=== PATIENT | female | born 1940 | race Caucasian/White ===

== ENCOUNTER 2019-11-22 08:32 | Emergency (ER) | payer MEDICARE, OTHER, SELFPAY ==
[2019-11-22] VITALS (8 sets, daily range): BP systolic 133–192; BP diastolic 51–75; PULSE 60–111; RESP 11–18; TEMP 36.6; O2SAT 97–100
--- NOTE | ~2019-11-22 | XR_ITS ---
EXAMINATION: XR chest 2V DATE: 11/22/2019 09:01 INDICATION: Shortness of breath. Neck and left arm pain. TECHNIQUE: Frontal and lateral views of the chest were obtained. COMPARISON: Chest 2 views 12/29/2017, chest CT 08/30/2016 FINDINGS: There is mild atelectasis in left lower lung zone. No pleural effusion or pneumothorax. Car diomegaly is noted. Median sternotomy wires and mediastinal surgical clips are seen, likely from prio r coronary artery bypass grafting. There is a left chest pacer/defibrillator with leads in right atri um, right ventricle, and coronary sinus. IMPRESSION: 1. Mild atelectasis in left lower lung zone. 2. Cardiomegaly. Reviewed, dictated and finalized at location A.
--- NOTE | 2019-11-22 08:39 | ECG_ITS ---
Measurements Intervals [place] Rate: 65 P: 68 MA: 192 QRS: 206 QRSD: 152 T: 88 QT: 460 QTc: 481 Interpretive Statements ATRIAL SENSE- ELECTRONIC VENTRICULAR PACEMAKER BASELINE ARTIFACT- I, II, III, AVR, AVL, AVF, V1, V3-V4 NO FURTHER INTERPRETATION IS POSSIBLE ATYPICAL ECG Electronically Signed On 11-22-2019 8:58:12 CDT by Jonah Barber D.O.
--- NOTE | 2019-11-22 09:00 | PC.NURSE ---
PT TO RADIOLOGY IN [facility] [place]
[2019-11-22 09:02] LABS: Basophils Absolute Auto 0.1 K/mm3 (0.0-0.1); Basophils Percent Auto 0.9 % (0.2-1.2); Eosinophils Absolute Auto 0.2 K/mm3 (0-0.3); Eosinophils Percent Auto 2.4 % (0-4.4); Hematocrit 38.7 % (37.0-47.0); Hemoglobin 12.6 g/dL (12.0-15.0); Immature Granulocyte Absolute 0.02 K/mm3 (0.00-0.031); Immature Granulocyte Percent A 0.3 % (0-0.5); Lymphocytes Absolute Auto 1.73 K/mm3 (0.9-3.2); Lymphocytes Percent Auto 24.9 % (18.3-44.2); Mean Corpuscular HGB Conc 32.6 g/dl (32-36); Mean Corpuscular Hemoglobin 27.8 pg (26-34); Mean Corpuscular Volume 85.2 fl (80-100); Mean Platelet Volume 10.1 fl (7.4-10.4); Monocytes Absolute Auto 0.7 K/mm3 (0.1-0.6); Monocytes Percent Auto 9.8 % (2.6-8.5); Neutrophils Absolute Auto 4.3 K/mm3 (1.3-6.7); Neutrophils Percent Auto 61.7 % (45.5-73.1); Platelet Count Result 222 k/mm3 (150-375); Red Blood Count 4.54 M/mm3 (4.2-5.4); Red Cell Distribution Width 15.4 % (11.5-14.5); White Blood Count 6.9 K/mm3 (4.5-10.0)
[2019-11-22 09:10] LABS: INR 1.1
[2019-11-22 09:12] LABS: Potassium 4.5 mmol/L (3.4-5.0)
[2019-11-22 09:15] LABS: Anion Gap 10 mmol/L (8-16); Blood Urea Nitrogen 33 mg/dL (7-17); Calcium 9.5 mg/dL (8.4-10.2); Carbon Dioxide 28 mmol/L (22-30); Chloride 98 mmol/L (98-107); Estimated CRCL calculation 46 ml/min; Estimated Glomerular Filt Rate 60; Glucose 144 mg/dL (65-105); Sodium 136 mmol/L (137-145)
[2019-11-22] MEDS: ASPIRIN 81 MG CHEWABLE TABLET 324 MG PO (09:16)
[2019-11-22 09:24] LABS: Troponin I 0.013 ng/mL (0.000-0.034)
[2019-11-22] MEDS: ACETAMINOPHEN 500 MG TABLET 1000 MG PO (09:45)
--- NOTE | 2019-11-22 10:02 | ED.CHESTPAIN ---
HPI - Chest Pain General Chief Complaint: Chest Pain Stated Complaint: Left arm & neck pain Time Seen by Provider: 11/22/19 08:49 Source: patient Mode of arrival: ambulatory Limitations: no limitations History of Present Illness HPI narrative: 78-year-old female History of heart failure Complains of pain in her left neck left shoulder and left arm since leaving [place] yesterday evening She did not injure it that she knows of Somewhat worse with some movements, nothing really makes it better, although she did not actually take any Tylenol or anything to attempt to alleviate her symptoms She has a history of congestive heart failure and when she was still sore when she woke up this morning she thought that she should come in and be checked out She actually notes that her baseline dyspnea is currently improved over what it usually is And she denies any chest pain or tightness MD complaint: other Onset (ago): hour(s) Timing of current episode: constant Severity: mild Related Data Home Medications Medication Instructions Recorded Confirmed Unable to Obtain Home Medications 11/22/19 11/22/19 Allergies Allergy/AdvReac Type Severity Reaction Status Date / Time Afzafyv-Vde-Dkz Reductase AdvReac Intermediate Verified 12/29/17 11:10 Inhibitor Review of Systems Review of Systems: All systems reviewed & are unremarkable except as noted in HPI and below Constitutional: Constitutional: Denies chills, Denies fatigue, Denies fever(s), Denies headache(s) and Denies night sweats Eyes: Eyes: Denies change in vision, Denies loss of vision and Denies other visual disturbances ENT: Denies headache(s), Denies hoarseness, Denies nasal congestion and Denies sore throat Cardiovascular: Cardiovascular: Denies chest pain, Denies leg edema, Denies palpitations and Denies dyspnea Respiratory: Respiratory: Denies cough, Denies dyspnea and Denies wheezing Gastrointestinal: Gastrointestinal: Denies abdominal pain, Denies diarrhea, Denies nausea and Denies vomiting Genitourinary: Genitourinary: Denies hematuria, Denies urinary frequency and Denies dysuria Musculoskeletal: Musculoskeletal: Denies abnormal gait, Reports back pain, Denies deformity, Reports arthralgias, Denies joint swelling, Denies muscle weakness and Denies numbness Integumentary/Breasts: Skin/Breast: Denies rash, Denies unusual bruising and Denies wounds Neurologic: Denies abnormal gait, Denies headache(s), Denies focal weakness, Denies loss of vision and Denies numbness Psychiatric: Psychiatric: Reports no additional psychiatric complaints Endocrine: Endocrine: Denies fatigue and Denies palpitations Hematologic/Lymphatic: Hematologic/Lymphatic: Denies easy bleeding and Denies easy bruising Allergic/Immunologic: Allergic/Immunologic: Denies wheezing [facility] Social History Social History Gender identity (if verbalized by the patient): Female Exam Const: General: no acute distress and well developed Orientation/consciousness: patient oriented x3 (alert) and Other orientation findings (Alert) Other: Elderly, frail, no distress HENMT: Head: normal to inspection, normocephalic and atraumatic Ears: external ears normal General nose exam: No nasal discharge present Face and sinus: face symmetric Mouth: Yes tongue normal and Yes moist mucous membranes Throat: other (No exudate, no erythema) Eyes: Conjunctivae: conjunctivae normal Sclera: sclerae normal EOM: EOMs intact bilaterally Neck: Neck: normal visual inspection, full ROM and supple Thyroid: thyroid normal Chest: Chest palpation & inspection: tenderness (Slightly tender in the left upper chest) Resp: Effort & Inspection: normal respiratory effort Auscultation: clear to auscultation bilaterally, no rales, no rhonchi, no wheezes and other (breath sounds equal) Cardio: Rate: regular rate Rhythm: regular rhythm Heart sounds: no gallops and no murmurs GI: Inspection: non-distended GI Palp
[2019-11-22 10:07] LABS: NT Pro B Type Natriuretic Pept 281 PG/ML (5-100)
--- NOTE | 2019-11-22 11:09 | PC.NURSE ---
REPORT GIVEN TO ALICIA REID AT THIS TIME, BEDSIDE, HE HAS ASSUMED PT CARE.
[2019-11-22 12:13] LABS: Troponin I < 0.012 ng/mL (0.000-0.034)
== END 2019-11-22 13:36 | disposition home or self-care (01) ==
PROVIDERS: Emergency Provider Emergency Medicine; PCP Family Medicine
DX: M54.2 Cervicalgia (principal); I50.9 Heart failure, unspecified
CPT/HCPCS: 36415; 71046; 80048; 83880; 84484; 85025; 85610; 85730; 93005; 99284; A9270

== ENCOUNTER 2019-12-07 13:53 | Outpatient (CLI) | payer MEDICARE, OTHER, SELFPAY ==
[2019-12-07 14:59] LABS: Anion Gap 12 mmol/L (8-16); Blood Urea Nitrogen 27 mg/dL (7-17); Calcium 9.4 mg/dL (8.4-10.2); Carbon Dioxide 31 mmol/L (22-30); Chloride 97 mmol/L (98-107); Estimated Glomerular Filt Rate > 60; Glucose 165 mg/dL (65-105); Potassium 4.3 mmol/L (3.4-5.0); Sodium 140 mmol/L (137-145)
[2019-12-07 15:06] LABS: NT Pro B Type Natriuretic Pept 122 PG/ML (5-100)
== END 2019-12-07 13:54 | disposition home or self-care (01) ==
PROVIDERS: PCP Family Medicine
DX: I25.10 Atherosclerotic heart disease of native coronary artery without angina pectoris (principal); I48.91 Unspecified atrial fibrillation; I42.9 Cardiomyopathy, unspecified; R60.9 Edema, unspecified; I50.9 Heart failure, unspecified; R06.02 Shortness of breath
CPT/HCPCS: 36415; 80048; 83880

== ENCOUNTER 2020-03-14 13:16 | Outpatient (CLI) | payer MEDICARE, OTHER, SELFPAY | END 2020-03-14 13:17 | disposition home or self-care (01) | LOC: ANHLAB 13:31 | PROVIDERS: PCP Family Medicine | DX: R53.83 Other fatigue (principal) | CPT/HCPCS: 36415; 84443 ==

== ENCOUNTER 2020-05-13 13:33 | Inpatient (IN) | payer MEDICARE, OTHER, SELFPAY ==
--- NOTE | ~2020-05-13 | US_ITS ---
EXAMINATION: US venous doppler [facility] DATE: 05/14/2020 12:35 INDICATION: Lower limb edema. TECHNIQUE: Grayscale ultrasound images without and with compression and Doppler ultrasound images of the bilateral lower extremity veins were obtained. COMPARISON: None. FINDINGS: The visualized portions of right common femoral vein, profunda (deep) femoral vein, femoral vein, pop liteal vein, peroneal veins, posterior tibial veins, and greater saphenous vein outflow are patent. The visualized portions of left common femoral vein, profunda femoral vein, femoral vein, popliteal v ein, peroneal veins, posterior tibial veins, and greater saphenous vein outflow are patent. IMPRESSION: 1. No deep venous thrombosis. Reviewed, dictated and finalized at location A.
--- NOTE | ~2020-05-13 | XR_ITS ---
EXAMINATION: XR chest 2V DATE: 05/13/2020 14:10 INDICATION: Shortness of breath. TECHNIQUE: Frontal and lateral views of the chest were obtained. COMPARISON: Chest 2 views 11/22/2019, chest CT 08/30/2016 FINDINGS: There is no pneumonia, pleural effusion, or pneumothorax. Cardiomegaly is noted. Median elvira rnotomy wires and mediastinal surgical clips are seen, likely from prior coronary artery bypass graft ing. There is a left chest pacer with leads in right atrium, right ventricle, and coronary sinus. The re is a chronic compression fracture in mid thoracic spine. IMPRESSION: 1. Cardiomegaly. Reviewed, dictated and finalized at location A. KER PRESS OPERATOR IMPRESSION: 1. Cardiomegaly.
--- NOTE | ~2020-05-13 | US_ITS ---
US arterial duplex LE RT 05/13/2020 14:44 Indication: Right lower extremity pain and cyanosis Procedure: Real-time right lower extremity arterial Doppler Comparison: No prior studies for comparison. Findings: The following velocities were obtained in the right lower extremity arteries: Right common femoral artery 10 1 cm/s Profunda femoris artery 261 cm/s Femoral artery proximally 73 cm/s Femoral artery mid 75 cm/s Femoral artery distal 88 cm/s Popliteal artery proximal 37 cm/s Popliteal artery distal 30 cm/s Posterior tibial artery 22 cm/s Peroneal artery 19 cm/s Anterior tibial artery 19 cm/s Dorsalis pedis artery 14 cm/s Limited flow noted in the posterior tibial, peroneal, anterior tibial and dorsalis pedis arteries. Impression: 1: Patent lower extremity arteries with significant velocity gradients below the femoral arteries, co nsistent with peripheral arterial disease. Reviewed, dictated and finalized at location A. STRY WORKER Impression: 1: Patent lower extremity arteries with significant velocity gradients below th e femoral arteries, consistent with peripheral arterial disease.
[2020-05-13 13:37] VITALS: BP 103/44; PULSE 70; RESP 20; TEMP 36.3; O2SAT 100
--- NOTE | 2020-05-13 13:41 | ECG_ITS ---
Measurements Intervals Left Hand Rate: 63 P: 74 DE: 183 QRS: -63 QRSD: 144 T: 75 QT: 471 QTc: 484 Interpretive Statements ATRIAL SENSE- ELECTRONIC VENTRICULAR PACEMAKER BASELINE ARTIFACT- I, II, III, AVR, AVL NO FURTHER INTERPRETATION IS POSSIBLE ATYPICAL ECG Electronically Signed On 05-13-2020 15:47:39 TEACHER MUSIC by Jonah Barber D.O.
[2020-05-13 13:51] LABS: Basophils Absolute Auto 0.1 K/mm3 (0.0-0.1); Basophils Percent Auto 0.5 % (0.2-1.2); Eosinophils Absolute Auto 0.2 K/mm3 (0-0.3); Eosinophils Percent Auto 2.2 % (0-4.4); Hematocrit 27.1 % (37.0-47.0); Hemoglobin 8.7 g/dL (12.0-15.0); Immature Granulocyte Absolute 0.04 K/mm3 (0.00-0.031); Immature Granulocyte Percent A 0.4 % (0-0.5); Lymphocytes Percent Auto 18.4 % (18.3-44.2); Mean Corpuscular HGB Conc 32.1 g/dl (32-36); Mean Corpuscular Hemoglobin 29.8 pg (26-34); Mean Corpuscular Volume 92.8 fl (80-100); Mean Platelet Volume 9.6 fl (7.4-10.4); Monocytes Absolute Auto 0.9 K/mm3 (0.1-0.6); Monocytes Percent Auto 9.1 % (2.6-8.5); Neutrophils Absolute Auto 6.8 K/mm3 (1.3-6.7); Neutrophils Percent Auto 69.4 % (45.5-73.1); Platelet Count Result 290 k/mm3 (150-375); Red Blood Count 2.92 M/mm3 (4.2-5.4); Red Cell Distribution Width 15.1 % (11.5-14.5); White Blood Count 9.8 K/mm3 (4.5-10.0)
[2020-05-13 14:01] LABS: INR 1.3; Prothrombin Time 16.4 Seconds (11.1-14.7)
[2020-05-13 14:02] LABS: Anion Gap 9 mmol/L (8-16); Blood Urea Nitrogen 23 mg/dL (7-17); Calcium 8.9 mg/dL (8.4-10.2); Carbon Dioxide 27 mmol/L (22-30); Chloride 100 mmol/L (98-107); Estimated CRCL calculation 38 ml/min; Estimated Glomerular Filt Rate 48; Glucose 156 mg/dL (65-105); Partial Thromboplastin Time 33.2 SECONDS (22.3-36.8); Potassium 4.4 mmol/L (3.4-5.0); Sodium 136 mmol/L (137-145)
[2020-05-13 14:14] LABS: NT Pro B Type Natriuretic Pept 344 PG/ML (5-100); Troponin I < 0.012 ng/mL (0.000-0.034)
[2020-05-13 15:04] VITALS: BP 112/47; PULSE 60; RESP 20; O2SAT 98
--- NOTE | 2020-05-13 16:19 | ED.SOB ---
HPI - SOB/Dyspnea General Chief Complaint: Shortness of Breath/Dyspnea Stated Complaint: SOB, weakness, leggs swollen turned blue Time Seen by Provider: 05/13/20 13:51 Related Data Home Medications Medication Instructions Recorded Confirmed evolocumab 420 mg/3.5 mL mg SUBCUT 04/12/20 04/30/20 subcutaneous wearable injector lorazepam 0.5 mg tablet 0.5 mg PO TID PRN 04/12/20 04/30/20 Allergies Allergy/AdvReac Type Severity Reaction Status Date / Time Hciqzsa-Mwe-Ovp Reductase AdvReac Intermediate Muscle Pain Verified 05/13/20 13:40 Inhibitor [facility] Past Medical History Medical History 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 BMI 30.0-30.9,adult Family History Family History Father Asthma Lung cancer Mother Hypertension Sibling Lung cancer Social History Social History Smoking packs per day: 1 Smoking cigarettes per day: 20.0 Years smoked: 5 Smoking pack-years: 5.00 Smoking status: Former smoker Tobacco type: cigarettes Alcohol intake: current Substance use: never Substance use type: does not use 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 HEAD: Normocephalic, atraumatic. EYES: PERRLA and EOMI. NECK: Supple. CHEST: Clear to auscultation. No respiratory distress. HEART: Regular rate and rhythm. No murmur heard. Normal peripheral pulses. ABDOMEN: Soft, nontender, nondistended, normal active bowel sounds. EXTREMITIES: Normal range of motion. Right leg diffuse bruising from thigh up to mid calf . good pedal pulse SKIN: Warm, dry, no rash. NEURO: No focal deficits. Alert and oriented x3. PSYCH: Normal mood and affect. Course Course Emergency Course: Arterial Doppler shows a PVD however there is no acute occlusion, however her hemoglobin has significantly dropped by 4 points from the last admission. I did Hemoccult which was negative. Her leg is all bruised not quite sure whether she might of bleed into the leg Vital Signs Vital signs: Vital Signs Temperature 36.3 C L 05/13/20 13:37 Pulse Rate 70 05/13/20 13:37 Respiratory Rate 20 05/13/20 13:37 Blood Pressure 103/44 L 05/13/20 13:37 Pulse Oximetry 100 05/13/20 13:37 Temperature 36.3 C L 05/13/20 13:37 Pulse Rate 60 05/13/20 15:04 Respiratory Rate 20 05/13/20 15:04 Blood Pressure 112/47 L 05/13/20 15:04 Pulse Oximetry 98 05/13/20 15:04 MDM - SOB/Dyspnea MDM Narrative Medical decision making narrative: Within given history of PVD and right leg being swollen and tender we will do arterial Doppler to make sure that she does not have any acute clot also will do CBC and chemistry and a chest x-ray. Lab Data Result diagrams: 05/13/20 13:45 05/13/20 13:45 Labs: Lab Results 05/13/20 05/13/20 05/13/20 Range/Units 13:45 13:45 13:45 WBC 9.8 (4.5-10.0) K/mm3 RBC 2.92 L (4.2-5.4) M/mm3 Hgb 8.7 L D (12.0-15.0) g/dL Hct 27.1 L (37.0-47.0) % MCV 92.8 (80-100) fl MCH 29.8 (26-34) pg MCHC 32.1 (32-36) g/dl RDW 15.1 H (11.5-14.5) % Plt Count 290 (150-375) k/mm3 MPV 9.6 (7.4-10.4) fl Immature Gran % (Auto) 0.4 (0-0.5) % Neut % (Auto) 69.4 (45.5-73.1) % Lymph % (Auto) 18.4 (18.3-44.2) % [place] % (Auto) 9.1 H (2.6-8.5) % Eos % (Auto) 2.2 (0-4.4) % Baso % (Auto) 0.5 (0.2-1.2) % Lymph # (Auto) 1.80 (0.9-3.2) K/mm3 [place] # (Auto) 0.9 H (0.1-0.6) K/mm3 Eos # (Auto) 0.2 (0-0.3) K/mm3 Baso # (Auto) 0.1 (0.0-0.1) K/mm3 Abs Immat Gran (auto) 0.04 H (0.00-0.031) K/mm3 Absolute Neuts (auto) 6.8 H (1.3-6.7)
[2020-05-13 16:35] LABS: Hematocrit 25.7 % (37.0-47.0); Hemoglobin 8.3 g/dL (12.0-15.0)
--- NOTE | 2020-05-13 17:25 | ADMGEN ---
This patient, Ghazal Golden, was admitted to Medical Room 341-01. Patient/family oriented to hospital policies and general routines including ID bracelet, bed and alarms, visiting hours, pain management, procedures, bathroom and other care routines, personal items, smoking policy, room service/diet, and visiting hours. Information on how to activate the Rapid Response Team has been discussed. Patient/Family are encouraged to report perceived risks to care and to ask questions if they do not understand what they are told or what they should do.
[2020-05-13] MEDS: SODIUM CHLORIDE 0.9% IV 1,000 ML 75 ML IV CONT (17:27)
[2020-05-13 17:35] VITALS: BP 113/52; PULSE 66; RESP 20; TEMP 36.5; O2SAT 99; BMI 31.9
[2020-05-13 20:00] VITALS: PULSE 63
[2020-05-13 20:53] VITALS: BP 127/69; PULSE 62; RESP 12; TEMP 36.7; O2SAT 99
[2020-05-13 22:02] LABS: Glucose Point of Care 112 (65-105)
[2020-05-13 23:22] LABS: Hematocrit 24.8 % (37.0-47.0); Hemoglobin 8.1 g/dL (12.0-15.0)
--- NOTE | 2020-05-13 23:58 | PM.IMHP ---
H&P: HPI History of Present Illness Date/Time: 05/13/20 23:58 Chief Complaint: hematoma Narrative: This is a pleasant 79 year old Diabetic female with history of atrial fibrillation on chronic anticoagulation with Eliquis, Systolic and Diastolic heart failure, and HTN among several other comorbidities presented to the hospital yesterday with a complaint of right proximal leg swelling, bruising, and pain. She reports that she believes she might have pulled her hamstring muscle and decided last night that she was going to do some exercises to help loosen it up. Her son directed her and she did simple leg exercises. She woke up in the morning and found that her leg was more swollen and severely bruised. She denies any trauma to her leg. She also complains of ongoing exertional shortness of breath which she states is chronic and unchanged. She denies any fevers, chills, worsening cough, sore throat, chest pain, palpitations, abdominal pain, dysuria, hematuria, rectal bleeding, dark black stools, or focal deficits. Routine labs demonstrated worsening anemia and ER provider performed rectal exam which was negative for blood. The patient was admitted for observation to keep an eye on her blood counts. 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 Hyperlipidemia Occult blood positive stool Paroxysmal atrial fibrillation Surgical History Surgical History History of bilateral knee arthroplasty Family History Family History Father Asthma Lung cancer Mother Hypertension Sibling Lung cancer Social History Social History Smoking packs per day: 0.5 Smoking cigarettes per day: 10.0 Years smoked: 3 Smoking pack-years: 1.50 Smoking status: Former smoker Tobacco type: cigarettes Alcohol intake: never Substance use: never Substance use type: does not use Living arrangements: alone 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/Education: 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 Gender identity (if verbalized by the patient): Female Spiritual care concerns: No Meds Home Medications and Allergies Home Medications Medication Instructions Recorded Confirmed Type albuterol sulfate 90 mcg/actuation 2 puff INHALATION Q4H PRN #8.5 g 04/12/20 05/13/20 Rx aerosol inhaler amiodarone 200 mg tablet 200 mg PO DAILY #30 tablet 04/12/20 05/13/20 Rx apixaban 5 mg tablet 5 mg PO BID #60 tablet 04/12/20 05/13/20 Rx carvedilol 25 mg tablet 25 mg PO Q12H #60 tablet 04/12/20 05/13/20 Rx cholecalciferol (vitamin D3) 50 50 mcg PO DAILY #30 cap 04/12/20 05/13/20 Rx mcg (2,000 unit) capsule clopidogrel 75 mg tablet 75 mg PO DAILY #30 tablet 04/12/20 05/13/20 Rx evolocumab 420 mg/3.5 mL 420 mg SUBCUT MONTHLY 04/12/20 05/13/20 History subcutaneous wearable injector fluticasone propionate 50 1 spray INTRANASAL DAILY #16 g 04/12/20 05/13/20 Rx mcg/actuation nasal spray,suspension furosemide 40 mg tablet 40 mg PO QAM #30 tablet 04/12/20 05/13/20 Rx glipizide 5 mg tablet 5 mg PO BID #60 tablet 04/12/20 05/13/20 Rx lorazepam 0.5 mg tablet 0.5 mg PO TID PRN 04/12/20 05/13/20 History magnesium oxide 400 mg PO DAILY #30 cap 04/12/20 05/13/20 Rx metformin 1,000 mg tablet 1,000 mg PO BID #60 tablet 04/12/20 05/13/20 Rx multivitamin 1 tablet PO DAILY #30 tablet 04/12/20 05/13/20 Rx omega-3 acid ethyl farzaneh
[2020-05-14] VITALS (14 sets, daily range): BP systolic 125–134; BP diastolic 43–73; PULSE 61–86; RESP 12–18; TEMP 36.6–36.9; O2SAT 94–100
--- NOTE | 2020-05-14 03:22 | PC.NURSE ---
Daylight Savings Time For Daylight Savings Time Ending in the Fall - Clocks are moved back. For Daylight Savings Time Beginning in the Spring - Clocks are moved ahead. For [facility], the time of change occurs at 0200 hrs. Time is taken from the heat treat technician. This entry on the patient's chart recognizes the change in time reflected during documentation. Example: 2 entries for vital signs may be charted for 0200 hrs.
[2020-05-14] MEDS: ZOLPIDEM TARTRATE (*CRX) 5 MG TABLET PO (03:48)
[2020-05-14 05:59] LABS: Hematocrit 22.5 % (37.0-47.0); Hemoglobin 7.3 g/dL (12.0-15.0)
[2020-05-14 06:00] LABS: Basophils Percent Auto 0.5 % (0.2-1.2); Eosinophils Absolute Auto 0.2 K/mm3 (0-0.3); Eosinophils Percent Auto 2.4 % (0-4.4); Hematocrit 22.8 % (37.0-47.0); Hemoglobin 7.2 g/dL (12.0-15.0); Immature Granulocyte Absolute 0.03 K/mm3 (0.00-0.031); Immature Granulocyte Percent A 0.5 % (0-0.5); Lymphocytes Absolute Auto 1.62 K/mm3 (0.9-3.2); Lymphocytes Percent Auto 25.4 % (18.3-44.2); Mean Corpuscular HGB Conc 31.6 g/dl (32-36); Mean Corpuscular Hemoglobin 28.6 pg (26-34); Mean Corpuscular Volume 90.5 fl (80-100); Mean Platelet Volume 9.4 fl (7.4-10.4); Monocytes Absolute Auto 0.8 K/mm3 (0.1-0.6); Monocytes Percent Auto 12.4 % (2.6-8.5); Neutrophils Absolute Auto 3.8 K/mm3 (1.3-6.7); Neutrophils Percent Auto 58.8 % (45.5-73.1); Platelet Count Result 241 k/mm3 (150-375); Red Blood Count 2.52 M/mm3 (4.2-5.4); Red Cell Distribution Width 15.3 % (11.5-14.5); White Blood Count 6.4 K/mm3 (4.5-10.0)
[2020-05-14 06:17] LABS: Anion Gap 2 mmol/L (8-16); Blood Urea Nitrogen 22 mg/dL (7-17); Calcium 8.1 mg/dL (8.4-10.2); Carbon Dioxide 30 mmol/L (22-30); Chloride 104 mmol/L (98-107); Estimated CRCL calculation 46 ml/min; Estimated Glomerular Filt Rate 60; Glucose 72 mg/dL (65-105); Sodium 136 mmol/L (137-145)
[2020-05-14] MEDS: AMIODARONE HCL 200 MG TABLET PO (07:52)
[2020-05-14] MEDS: metFORMIN HCL 500 MG TABLET 1000 MG PO ×2 (07:53→16:43)
[2020-05-14] MEDS: glipiZIDE 5 MG TABLET PO ×2 (07:53→16:44)
[2020-05-14 08:10] LABS: Glucose Point of Care 75 (65-105)
[2020-05-14] MEDS: CHOLECALCIFEROL 1,000 UNITS TABLET 2000 UNITS PO (08:39)
[2020-05-14] MEDS: carvediloL 25 MG TABLET PO ×2 (08:39→20:13)
[2020-05-14] MEDS: OMEGA 3 POLYUNSAT FATTY ACIDS 1 GM CAP PO ×2 (08:40→16:44)
[2020-05-14] MEDS: MAGNESIUM OXIDE 400 MG TABLET PO (08:40)
[2020-05-14] MEDS: FUROSEMIDE 40 MG TABLET PO (08:40)
[2020-05-14] MEDS: SACUBITRIL/VALSARTAN 24-26 MG TABLET 1 TAB PO ×2 (08:40→20:13)
[2020-05-14] MEDS: MULTIVITAMINS THERAPEUTIC TAB (*BKC) 1 TABLET PO (08:40)
[2020-05-14] MEDS: FLUTICASONE PROPIONATE 0.05% NA SPR 16 GM BTL (*BKC) 1 SPRAY NASAL (08:40)
--- NOTE | 2020-05-14 10:08 | PM.IMPN ---
Progress Note: A&P Assessment and Plan (1) Hematoma of right lower extremity: Qualifiers: Encounter type: initial encounter Qualified Code(s): S80.11XA - Contusion of right lower leg, initial encounter Code(s): S80.11XA - Contusion of right lower leg, initial encounter Status: Acute Assessment and Plan: Will do venous Doppler lower extremity. It monitored closely. (2) Anemia: Qualifiers: Anemia type: unspecified type Qualified Code(s): D64.9 - Anemia, unspecified Code(s): D64.9 - Anemia, unspecified Status: Acute Assessment and Plan: Hemoglobin dropped to 7.2 today. Will transfuse 2 units of blood. Will hold Plavix, Monitor hemoglobin, consult Gastroenterology. 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 Venous Doppler lower extremity. Hold Plavix. Repeat CBC in the morning. Hemoccult stools. Consult GI service if Hemoccult stool is positive. Subjective Date/time seen: 05/14/20 10:08 Interval history: Patient was seen during the morning rounds today. Patient has generalized weakness. Denies any shortness of breath or chest pain. Pain in the lower extremity has decreased. Mood stable. Review of Systems Review of Systems: All systems reviewed & are unremarkable except as noted in HPI and below Exam Const: General: cooperative, no acute distress, alert and awake Nutritional Appearance: obese Orientation/consciousness: patient oriented x3 HENMT: Head: normal to inspection General nose exam: Normal external nose present Face and sinus: normal facial exam Mouth: Yes Normal oral and palatal mucosa present and Yes oropharynx normal Eyes: Pupils: Equal, round and reactive pupils present EOM: EOMs intact bilaterally Neck: Neck: supple and no JVD Thyroid: thyroid normal Lymphatic: lymphadenopathy not noted Resp: Effort & Inspection: normal respiratory effort Auscultation: clear to auscultation bilaterally Cardio: Rate: other Rhythm: abnormal rhythm irregularly irregular Heart sounds: no murmurs GI: Inspection: normal to inspection Auscultation: normal bowel sounds Skin: General skin exam: ecchymosis (posterior right upper leg++ ) Neuro: General: patient oriented x3 Cranial nerves: Yes CN's II-XII intact bilaterally and Yes Equal, round and reactive pupils present Speech: normal speech Motor exam (neuro): 5/5 motor strength present throughout Sensory Exam: normal sensation Extrem: General: normal to inspection and no edema Psych: Mental Status: mental status grossly normal Affect: normal affect Objective Data Vital Signs Vital Signs: Vital Signs - 24 hr 05/13/20 13:37 05/13/20 15:04 05/13/20 17:35 Temperature 36.3 C L 36.5 C Pulse Rate 70 60 66 Respiratory Rate 20 20 20 Blood Pressure 103/44 L 112/47 L 113/52 L Pulse Oximetry 100 98 99 05/13/20 20:00 05/13/20 20:53 05/14/20 00:00 Temperature 36.7 C Pulse Rate 63 62 81 Respiratory Rate 12 Blood Pressure 127/69 Pulse Oximetry 99 05/14/20 04:08 05/14/20 05:35 05/14/20 07:52 Temperature 36.6 C Pulse Rate 65 66 66 Respiratory Rate 12 Blood Pressure 134/49 L Pulse Oximetry 94 05/14/20 07:53 05/14/20 08:00 05/14/20 08:39 Temperature Pulse Rate 68 68 Respiratory Rate Blood Pressure
[2020-05-14] MEDS: PANTOPRAZOLE SODIUM IV 40 MG VIAL IV PUSH (11:29)
[2020-05-14] MEDS: INSULIN ASPART (*BKC) 100 UNITS/ML SUB-Q (11:32)
[2020-05-14 11:48] LABS: Hematocrit 24.4 % (37.0-47.0); Hemoglobin 7.7 g/dL (12.0-15.0)
--- NOTE | 2020-05-14 12:36 | WPDGICN ---
Assessment and Plan Assessment and plan (1) Acute blood loss anemia: Code(s): D62 - Acute posthemorrhagic anemia Status: Acute Assessment and Plan: most likely from large hematoma in right leg in setting of blood thinners but also noted occult blood in stools patient is willing to have a colonoscopy (never had one), we can do it tomorrrow trend hb (2) Occult blood positive stool: Code(s): R19.5 - Other fecal abnormalities Status: Acute Assessment and Plan: will assess with colonoscopy (3) Hematoma of right lower extremity: Qualifiers: Encounter type: initial encounter Qualified Code(s): S80.11XA - Contusion of right lower leg, initial encounter Code(s): S80.11XA - Contusion of right lower leg, initial encounter Status: Acute Assessment and Plan: holding blood thinners by primary pending ultrasound (4) Paroxysmal atrial fibrillation: Code(s): I48.0 - Paroxysmal atrial fibrillation Status: Acute (5) Combined systolic and diastolic heart failure: Code(s): I50.40 - Unspecified combined systolic (congestive) and diastolic (congestive) heart failure Status: Acute (6) Essential (primary) hypertension: Code(s): I10 - Essential (primary) hypertension Status: Acute (7) 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 Blood work showed worsening anemia hb 7.2 (last year hb 12), mcv 90, normal creatinine, platelets and coags. Routine labs demonstrated worsening anemia, patient denies obvious blood in stools but I was told that found occult blood. She never had colonoscopy. Denies change in bowel habits. Review of Systems Constitutional: Constitutional: Denies chills Eyes: Eyes: Reports no additional eye complaints ENT: Reports system reviewed and no additional complaints, except as documented Cardiovascular: Cardiovascular: Reports no additional cardiovascular complaints Respiratory: Respiratory: Reports no additional respiratory complaints Gastrointestinal: Gastrointestinal: Reports no additional gastrointestinal complaints Genitourinary: Genitourinary: Reports no additional female genitourinary complaints Musculoskeletal: Comments: leg pain Neurologic: Reports system reviewed and no additional complaints, except as documented Psychiatric: Psychiatric: Reports no additional psychiatric complaints Hematologic/Lymphatic: Hematologic/Lymphatic: Reports easy bruising PMFSH Past Medical History Medical History 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
[2020-05-14 16:38] LABS: Glucose Point of Care 80 (65-105)
[2020-05-14] MEDS: polyethylene glycoL 3350 238 GM BOTTLE PO (16:43)
[2020-05-14 16:52] LABS: IFOB Positive Control Positive; Immunochemical Fecal Occult Bl Negative (N)
[2020-05-14] MEDS: BISACODYL 5 MG TABLET EC 20 MG PO (20:12)
[2020-05-14 20:14] LABS: Hemoglobin 8.4 g/dL (12.0-15.0)
[2020-05-15] VITALS (13 sets, daily range): BP systolic 129–146; BP diastolic 41–50; PULSE 62–69; RESP 16–27; TEMP 36.6–36.7; O2SAT 96–100
[2020-05-15] MEDS: ZOLPIDEM TARTRATE (*CRX) 5 MG TABLET PO ×2 (01:14→23:42)
[2020-05-15] MEDS: MAGNESIUM CITRATE 300 ML BTL PO (04:59)
[2020-05-15 05:12] LABS: Hematocrit 24.5 % (37.0-47.0); Hemoglobin 7.9 g/dL (12.0-15.0); Mean Corpuscular HGB Conc 32.2 g/dl (32-36); Mean Corpuscular Hemoglobin 29.5 pg (26-34); Mean Corpuscular Volume 91.4 fl (80-100); Mean Platelet Volume 9.4 fl (7.4-10.4); Platelet Count Result 248 k/mm3 (150-375); Red Blood Count 2.68 M/mm3 (4.2-5.4); Red Cell Distribution Width 15.4 % (11.5-14.5); White Blood Count 10.1 K/mm3 (4.5-10.0)
[2020-05-15 05:27] LABS: Anion Gap 8 mmol/L (8-16); Blood Urea Nitrogen 18 mg/dL (7-17); Calcium 8.6 mg/dL (8.4-10.2); Carbon Dioxide 27 mmol/L (22-30); Chloride 99 mmol/L (98-107); Estimated CRCL calculation 46 ml/min; Estimated Glomerular Filt Rate 60; Glucose 184 mg/dL (65-105); Potassium 3.4 mmol/L (3.4-5.0); Sodium 134 mmol/L (137-145)
[2020-05-15 07:54] LABS: Glucose Point of Care 209 (65-105)
[2020-05-15 09:59] LABS: Glucose Point of Care 157 (65-105)
[2020-05-15 10:25] LABS: Hematocrit 23.9 % (37.0-47.0); Hemoglobin 7.8 g/dL (12.0-15.0); Mean Corpuscular HGB Conc 32.6 g/dl (32-36); Mean Corpuscular Volume 91.9 fl (80-100); Mean Platelet Volume 9.5 fl (7.4-10.4); Platelet Count Result 268 k/mm3 (150-375); Red Cell Distribution Width 15.4 % (11.5-14.5); White Blood Count 8.4 K/mm3 (4.5-10.0)
[2020-05-15 11:23] LABS: Anion Gap 4 mmol/L (8-16); Blood Urea Nitrogen 19 mg/dL (7-17); Calcium 8.6 mg/dL (8.4-10.2); Carbon Dioxide 31 mmol/L (22-30); Chloride 101 mmol/L (98-107); Estimated CRCL calculation 46 ml/min; Estimated Glomerular Filt Rate 60; Glucose 152 mg/dL (65-105); Potassium 3.5 mmol/L (3.4-5.0); Sodium 136 mmol/L (137-145)
[2020-05-15 11:51] LABS: Glucose Point of Care 123 (65-105)
[2020-05-15 13:22] LABS: Glucose Point of Care 115 (65-105)
[2020-05-15] MEDS: LACTATED RINGERS 1,000 ML 150 ML IV CONT (13:29)
--- NOTE | 2020-05-15 13:53 | WPDANESEPPF ---
Anes - Initial Pre Proc Eval Procedure: Operation Date: 05/15/20 15:15 Proposed Procedures p Colonoscopy - Sabino Diaz MD Date/Time: 05/15/20 13:53 Surgeon: Ender Crowell MD Pre Op Diagnosis: Right Leg Hematoma, Anemia, SOB Patient Data Age: 79 Gender: F Height: 5 ft 4 in Weight: 84.5 kg Last Vital Signs Temp 98.1 F 05/15/20 13:23 Pulse 65 05/15/20 13:23 Resp 16 05/15/20 13:23 BP 146/43 H 05/15/20 13:23 Pulse Ox 100 05/15/20 13:23 Allergies Allergy/AdvReac Type Severity Reaction Status Date / Time Yeeecwy-Dvm-Liq Reductase AdvReac Intermediate Muscle Pain Verified 05/15/20 13:18 Inhibitor Home Medications Medication Instructions Recorded Confirmed Type albuterol sulfate 90 mcg/actuation 2 puff INHALATION Q4H PRN #8.5 g 04/12/20 05/13/20 Rx aerosol inhaler amiodarone 200 mg tablet 200 mg PO DAILY #30 tablet 04/12/20 05/13/20 Rx apixaban 5 mg tablet 5 mg PO BID #60 tablet 04/12/20 05/13/20 Rx carvedilol 25 mg tablet 25 mg PO Q12H #60 tablet 04/12/20 05/13/20 Rx cholecalciferol (vitamin D3) 50 50 mcg PO DAILY #30 cap 04/12/20 05/13/20 Rx mcg (2,000 unit) capsule clopidogrel 75 mg tablet 75 mg PO DAILY #30 tablet 04/12/20 05/13/20 Rx evolocumab 420 mg/3.5 mL 420 mg SUBCUT MONTHLY 04/12/20 05/13/20 History subcutaneous wearable injector fluticasone propionate 50 1 spray INTRANASAL DAILY #16 g 04/12/20 05/13/20 Rx mcg/actuation nasal spray,suspension furosemide 40 mg tablet 40 mg PO QAM #30 tablet 04/12/20 05/13/20 Rx glipizide 5 mg tablet 5 mg PO BID #60 tablet 04/12/20 05/13/20 Rx lorazepam 0.5 mg tablet 0.5 mg PO TID PRN 04/12/20 05/13/20 History magnesium oxide 400 mg PO DAILY #30 cap 04/12/20 05/13/20 Rx metformin 1,000 mg tablet 1,000 mg PO BID #60 tablet 04/12/20 05/13/20 Rx multivitamin 1 tablet PO DAILY #30 tablet 04/12/20 05/13/20 Rx omega-3 acid ethyl esters 1 gram 1 cap PO BID #60 cap 04/12/20 05/13/20 Rx capsule potassium chloride 20 mEq 40 meq PO BID #120 tablet 04/12/20 05/13/20 Rx tablet,extended release(part/cryst) ranolazine 500 mg tablet,extended 500 mg PO Q12H #60 tablet 04/12/20 05/13/20 Rx release,12 hr sacubitril 24 mg-valsartan 26 mg 1 tablet PO BID #60 tablet 04/12/20 05/13/20 Rx tablet vit C-vit W-yabegw-tqyx ox-lutein 1 cap PO .once daily #30 cap 04/12/20 05/13/20 Rx 226 mg-200 unit-5 mg-0.8 mg capsule zolpidem 5 mg tablet 5 mg PO DAILY PRN #30 tablet 04/12/20 05/13/20 Rx nitroglycerin 1 patch TRANSDERMAL DAILY PRN 05/13/20 05/13/20 History Laboratory Tests 05/14/20 05/14/20 05/14/20 11:30 16:15 16:34 WBC RBC Hgb Hct MCV MCH MCHC RDW Plt Count MPV Sodium Potassium Chloride Carbon Dioxide Anion Gap BUN Creatinine Estim Creat Clear Calc Estimated GFR Glucose POC Capillary Glucose 209 mg/dl H mg/dl 80 mg/dl mg/dl (65-105) (65-105) Calcium Stl Occult Blood (IFOB) Negative (N) 05/14/20 05/15/20 05/15/20 20:09 04:57 04:57 WBC 10.1 K/mm3 H K/mm3 (4.5-10.0) RBC 2.68 M/mm3 L M/mm3 (4.2-5.4) Hgb 8.4 g/dL L g/dL 7.9 g/dL L g/dL (12.0-15.0) (12.0-15.0) Hct 26.0 % L % 24.5 % L % (37.0-47.0) (37.0-47.0) MCV 91.4 fl fl (80-100) MCH 29.5 pg pg (26-34) MCHC 32.2 g/dl g/dl (32-36) RDW 15.4 % H % (11.5-14.5) Plt Count 248 k/mm3 k/mm3 (150-375) MPV 9.4 fl fl (7.4-10.4) Sodium 134 mmol/L L mmol/L (137-145) Potassium 3.4 mmol/L mmol/L (3.4-5.0) Chloride 99 mmol/L mmol/L (98-107) Carbon Dioxide 27 mmol/L mmol/L (22-30) Anion Gap 8 mmol/L mmol/L (8-16) BUN 1
--- NOTE | 2020-05-15 16:09 | PM.IMPN ---
Progress Note: A&P Assessment and Plan (1) Hematoma of right lower extremity: Qualifiers: Encounter type: initial encounter Qualified Code(s): S80.11XA - Contusion of right lower leg, initial encounter Code(s): S80.11XA - Contusion of right lower leg, initial encounter Status: Acute Assessment and Plan: Will do venous Doppler lower extremity. It monitored closely. 05/15/20 16:09, patient is 79-year-old female chronically anticoagulated atrial fibrillation with Eliquis with history of diastolic dysfunction patient presented emergency department with a complaint pain, swelling and bruising apparently patient and leg cramps and patient was doing exercise yesterday and woke up next morning with more swelling and pain was brought to the emergency department for further evaluation was found to be anemic and patient was given 2 units of pack RBC, most likely multifactorial secondary to large hematoma on right lower extremity and her stool Hemoccult is also positive, patient was seen by GI and is planning to take the patient endoscopy today further evaluation, to further evaluate her hematoma patient had a lower extremity venous Doppler there was no DVT, arterial ultrasound showed patient has a PVD, Patient denies any chest pain, shortness of breath palpitation, patient's son is present in the room, will follow-up on endoscopy and further recommendation to follow (2) Anemia: Qualifiers: Anemia type: unspecified type Qualified Code(s): D64.9 - Anemia, unspecified Code(s): D64.9 - Anemia, unspecified Status: Acute Assessment and Plan: Hemoglobin dropped to 7.2 today. Will transfuse 2 units of blood. Will hold Plavix, Monitor hemoglobin, consult Gastroenterology. 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 Venous Doppler lower extremity. Hold Plavix. Repeat CBC in the morning. Hemoccult stools. Consult GI service if Hemoccult stool is positive. Subjective Date/time seen: 05/15/20 16:09, patient is 79-year-old female chronically anticoagulated atrial fibrillation with Eliquis with history of diastolic dysfunction patient presented emergency department with a complaint pain, swelling and bruising apparently patient and leg cramps and patient was doing exercise yesterday and woke up next morning with more swelling and pain was brought to the emergency department for further evaluation was found to be anemic and patient was given 2 units of pack RBC, most likely multifactorial secondary to large hematoma on right lower extremity and her stool Hemoccult is also positive, patient was seen by GI and is planning to take the patient endoscopy today further evaluation, to further evaluate her hematoma patient had a lower extremity venous Doppler there was no DVT, arterial ultrasound showed patient has a PVD, Patient denies any chest pain, shortness of breath palpitation, patient's son is present in the room, will follow-up on endoscopy and further recommendation to follow Review of Systems Review of Systems: All systems reviewed & are unremarkable except as noted in HPI and below Exam Narrative: Exam Narrative: Moderately obese Patient is comfortable, NAD HEENT: eyes are clear and none icteric LUNGS:CTA HEART: RR S1S2 ABD: BS+, Soft and non
[2020-05-15] MEDS: AMIODARONE HCL 200 MG TABLET PO (16:38)
[2020-05-15] MEDS: CHOLECALCIFEROL 1,000 UNITS TABLET 2000 UNITS PO (16:38)
[2020-05-15] MEDS: FUROSEMIDE 40 MG TABLET PO (16:39)
[2020-05-15] MEDS: FLUTICASONE PROPIONATE 0.05% NA SPR 16 GM BTL (*BKC) 1 SPRAY NASAL (16:39)
[2020-05-15] MEDS: MAGNESIUM OXIDE 400 MG TABLET PO (16:39)
[2020-05-15] MEDS: PANTOPRAZOLE SODIUM IV 40 MG VIAL IV PUSH (16:40)
[2020-05-15] MEDS: MULTIVITAMINS THERAPEUTIC TAB (*BKC) 1 TABLET PO (16:40)
[2020-05-15] MEDS: glipiZIDE 5 MG TABLET PO (16:45)
[2020-05-15] MEDS: metFORMIN HCL 500 MG TABLET 1000 MG PO (16:45)
[2020-05-15] MEDS: OMEGA 3 POLYUNSAT FATTY ACIDS 1 GM CAP PO (16:45)
[2020-05-15 16:50] LABS: Glucose Point of Care 109 (65-105)
[2020-05-15] MEDS: SODIUM CHLORIDE 0.9% INJ 10 ML 100 ML (18:28)
[2020-05-15] MEDS: SACUBITRIL/VALSARTAN 24-26 MG TABLET 1 TAB PO (20:00)
[2020-05-15] MEDS: carvediloL 25 MG TABLET PO (20:00)
[2020-05-15 23:46] LABS: Glucose Point of Care 88 (65-105)
[2020-05-16] VITALS: PULSE 77
[2020-05-16 04:00] VITALS: PULSE 62
[2020-05-16 04:13] VITALS: BP 143/54; PULSE 64; RESP 18; TEMP 36.4; O2SAT 97
[2020-05-16 05:50] LABS: Hematocrit 24.9 % (37.0-47.0); Mean Corpuscular HGB Conc 32.1 g/dl (32-36); Mean Corpuscular Volume 93.3 fl (80-100); Mean Platelet Volume 9.5 fl (7.4-10.4); Platelet Count Result 281 k/mm3 (150-375); Red Blood Count 2.67 M/mm3 (4.2-5.4); Red Cell Distribution Width 15.8 % (11.5-14.5)
[2020-05-16 06:13] LABS: Anion Gap 4 mmol/L (8-16); Blood Urea Nitrogen 19 mg/dL (7-17); Calcium 8.2 mg/dL (8.4-10.2); Carbon Dioxide 32 mmol/L (22-30); Chloride 101 mmol/L (98-107); Estimated CRCL calculation 42 ml/min; Estimated Glomerular Filt Rate 53; Glucose 101 mg/dL (65-105); Potassium 3.6 mmol/L (3.4-5.0); Sodium 137 mmol/L (137-145)
[2020-05-16 07:52] LABS: Glucose Point of Care 102 (65-105)
[2020-05-16 08:00] VITALS: PULSE 60
[2020-05-16] MEDS: CHOLECALCIFEROL 1,000 UNITS TABLET 2000 UNITS PO (08:13)
[2020-05-16] MEDS: FLUTICASONE PROPIONATE 0.05% NA SPR 16 GM BTL (*BKC) 1 SPRAY NASAL (08:13)
[2020-05-16] MEDS: SACUBITRIL/VALSARTAN 24-26 MG TABLET 1 TAB PO (08:13)
[2020-05-16] MEDS: PANTOPRAZOLE SODIUM IV 40 MG VIAL IV PUSH (08:13)
[2020-05-16] MEDS: MULTIVITAMINS THERAPEUTIC TAB (*BKC) 1 TABLET PO (08:14)
[2020-05-16] MEDS: MAGNESIUM OXIDE 400 MG TABLET PO (08:14)
[2020-05-16] MEDS: FUROSEMIDE 40 MG TABLET PO (08:14)
[2020-05-16] MEDS: glipiZIDE 5 MG TABLET PO (08:14)
[2020-05-16] MEDS: metFORMIN HCL 500 MG TABLET 1000 MG PO (08:14)
[2020-05-16] MEDS: OMEGA 3 POLYUNSAT FATTY ACIDS 1 GM CAP PO (08:14)
[2020-05-16 08:17] VITALS: PULSE 64
[2020-05-16] MEDS: carvediloL 25 MG TABLET PO (08:17)
[2020-05-16] MEDS: AMIODARONE HCL 200 MG TABLET PO (08:17)
[2020-05-16] MEDS: SODIUM CHLORIDE 0.9% INJ 10 ML 100 ML (08:17)
--- NOTE | 2020-05-16 09:15 | WPDANESPN ---
Anes - Prog Note Post-Op Date/Time: 05/16/20 09:15 Cardiovascular status: normal Respiratory status: normal Airway patency: baseline Mental status: baseline Post-Op hydration status: normal Vital Signs: Last Vital Signs Temp 36.4 C 05/16/20 04:13 Pulse 64 05/16/20 08:17 Resp 18 05/16/20 04:13 BP 143/54 H 05/16/20 04:13 Pulse Ox 97 05/16/20 04:13 Pain Score (VAS): 0/10. Patient resting in bed at time of assessment, appears comfortable. I/O: Intake & Output 05/15/20 05/16/20 05/16/20 23:59 07:59 15:59 Intake Total 1015 100 Output Total 950 Balance 65 100 Laboratory Tests 05/16/20 05:39 05/16/20 05:39 05/15/20 05/15/20 05/15/20 08:29 10:03 10:03 WBC 8.4 RBC 2.60 L Hgb 7.8 L Hct 23.9 L MCV 91.9 MCH 30.0 MCHC 32.6 RDW 15.4 H Plt Count 268 MPV 9.5 Sodium 136 L Potassium 3.5 Chloride 101 Carbon Dioxide 31 H Anion Gap 4 L BUN 19 H Creatinine 0.90 Estim Creat Clear Calc 46 Estimated GFR 60 Glucose 152 H POC Capillary Glucose 157 H Calcium 8.6 05/15/20 05/15/20 05/15/20 11:45 13:19 16:37 WBC RBC Hgb Hct MCV MCH MCHC RDW Plt Count MPV Sodium Potassium Chloride Carbon Dioxide Anion Gap BUN Creatinine Estim Creat Clear Calc Estimated GFR Glucose POC Capillary Glucose 123 H 115 H 109 Calcium 05/15/20 05/16/20 05/16/20 23:40 05:39 05:39 WBC 7.0 RBC 2.67 L Hgb 8.0 L Hct 24.9 L MCV 93.3 MCH 30.0 MCHC 32.1 RDW 15.8 H Plt Count 281 MPV 9.5 Sodium 137 Potassium 3.6 Chloride 101 Carbon Dioxide 32 H Anion Gap 4 L BUN 19 H Creatinine 1.00 Estim Creat Clear Calc 42 Estimated GFR 53 L Glucose 101 POC Capillary Glucose 88 Calcium 8.2 L 05/16/20 07:48 WBC RBC Hgb Hct MCV MCH MCHC RDW Plt Count MPV Sodium Potassium Chloride Carbon Dioxide Anion Gap BUN Creatinine Estim Creat Clear Calc Estimated GFR Glucose POC Capillary Glucose 102 Calcium Post-procedural complaints: none Patient Feedback: Patient satisfied with anesthetic care.
--- NOTE | 2020-05-16 10:22 | PM.DS ---
DS: Admitting Diagnosis Admitting Diagnosis Admitting Diagnosis: Shortness of Breath/Dyspnea DS: Discharge Diagnosis Discharge Diagnosis (1) Hematoma of right lower extremity: Qualifiers: Encounter type: initial encounter Qualified Code(s): S80.11XA - Contusion of right lower leg, initial encounter Code(s): S80.11XA - Contusion of right lower leg, initial encounter Status: Acute Assessment and Plan: Will do venous Doppler lower extremity. It monitored closely. 05/15/20 16:09, patient is 79-year-old female chronically anticoagulated atrial fibrillation with Eliquis with history of diastolic dysfunction patient presented emergency department with a complaint pain, swelling and bruising apparently patient and leg cramps and patient was doing exercise yesterday and woke up next morning with more swelling and pain was brought to the emergency department for further evaluation was found to be anemic and patient was given 2 units of pack RBC, most likely multifactorial secondary to large hematoma on right lower extremity and her stool Hemoccult is also positive, patient was seen by GI and is planning to take the patient endoscopy today further evaluation, to further evaluate her hematoma patient had a lower extremity venous Doppler there was no DVT, arterial ultrasound showed patient has a PVD, Patient denies any chest pain, shortness of breath palpitation, patient's son is present in the room, will follow-up on endoscopy and further recommendation to follow (2) Anemia: Qualifiers: Anemia type: unspecified type Qualified Code(s): D64.9 - Anemia, unspecified Code(s): D64.9 - Anemia, unspecified Status: Acute Assessment and Plan: Hemoglobin dropped to 7.2 today. Will transfuse 2 units of blood. Will hold Plavix, Monitor hemoglobin, consult Gastroenterology. (3) GERD (gastroesophageal reflux disease): Qualifiers: Esophagitis presence: esophagitis presence not specified Qualified Code(s): K21.9 - Gastro-esophageal reflux disease without esophagitis Code(s): K21.9 - Gastro-esophageal reflux disease without esophagitis Status: Chronic (4) Paroxysmal atrial fibrillation: Code(s): I48.0 - Paroxysmal atrial fibrillation Status: Chronic Assessment and Plan: Heart rate controlled (5) Essential (primary) hypertension: Code(s): I10 - Essential (primary) hypertension Status: Chronic Assessment and Plan: Stable on meds (6) Combined systolic and diastolic heart failure: Qualifiers: Heart failure chronicity: chronic Qualified Code(s): I50.42 - Chronic combined systolic (congestive) and diastolic (congestive) heart failure Code(s): I50.40 - Unspecified combined systolic (congestive) and diastolic (congestive) heart failure Status: Chronic Assessment and Plan: Stable on medications DS: Summary Hospital Course Reason for hospitalization: This is a pleasant 79 year old Diabetic female with history of atrial fibrillation on chronic anticoagulation with Eliquis, Systolic and Diastolic heart failure, and HTN among several other comorbidities presented to the hospital yesterday with a complaint of right proximal leg swelling, bruising, and pain. She reports that she believes she might have pulled her hamstring muscle and decided last night that she was going to do some exercises to help loosen it up. Her son directed her and she did simple leg exercises. She woke up in the morning and found that her leg was more swollen and severely bruised. She denies any trauma to her leg. She also complains of ongoing exertional shortness of breath which she states is chronic and unchanged. She denies any fevers, chills, worsening cough, sore throat, chest pain, palpitations, abdominal pain, dysuria, hematuria, rectal bleeding, dark black stools, or focal deficits. Routine labs demonstrated worsening anemia an
--- NOTE | 2020-05-16 11:59 | PC.NURSE ---
Spoke with son Abhijit regarding discharge. Both patient and son(who normally takes Ghazal to her medical appts) are aware that she needs to see her primary anusha in regards to restarting her blood thinners. Both verbalized understanding.
== END 2020-05-16 12:36 | disposition home or self-care (01) | DRG 392 ==
LOC: ANHED 16:21 → ANH3MED 16:44
PROVIDERS: Family Medicine; Internal Medicine Gastroenterology; Admitting Provider Internal Medicine; Emergency Provider Family Medicine; PCP Family Medicine; Visit Provider Family Medicine
PROC: 0DJD8ZZ Inspection of Lower Intestinal Tract, Via Natural or Artificial Opening Endoscopic (ICD-10-PCS; CPT 45378; principal; 2020-05-15 15:15)
DX: R19.5 Other fecal abnormalities (principal); I50.42 Chronic combined systolic (congestive) and diastolic (congestive) heart failure; I25.810 Atherosclerosis of coronary artery bypass graft(s) without angina pectoris; D62 Acute posthemorrhagic anemia; S80.11XA Contusion of right lower leg, initial encounter; I11.0 Hypertensive heart disease with heart failure; K63.5 Polyp of colon; K64.8 Other hemorrhoids; I48.0 Paroxysmal atrial fibrillation; K21.9 Gastro-esophageal reflux disease without esophagitis; E78.5 Hyperlipidemia, unspecified; Z28.21 Immunization not carried out because of patient refusal; Z79.01 Long term (current) use of anticoagulants; Z79.899 Other long term (current) drug therapy; Z87.891 Personal history of nicotine dependence
CPT/HCPCS: 36415; 71046; 80048; 82274; 82948; 83880; 84484; 85014; 85018; 85025; 85027; 85610; 85730; 86850; 86900; 86901; 88305; 93005; 93926; 93970; 96374; 99285; A9270; C9113; G0378; J1815; J2704; J7030; J7120

== ENCOUNTER 2020-06-09 10:48 | Outpatient (CLI) | payer MEDICARE, OTHER, SELFPAY ==
[2020-06-09 12:09] LABS: Basophils Absolute Auto 0.1 K/mm3 (0.0-0.1); Basophils Percent Auto 0.9 % (0.2-1.2); Eosinophils Absolute Auto 0.2 K/mm3 (0-0.3); Eosinophils Percent Auto 4.3 % (0-4.4); Hemoglobin 10.7 g/dL (12.0-15.0); Immature Granulocyte Absolute 0.01 K/mm3 (0.00-0.031); Immature Granulocyte Percent A 0.2 % (0-0.5); Lymphocytes Absolute Auto 0.96 K/mm3 (0.9-3.2); Lymphocytes Percent Auto 18.1 % (18.3-44.2); Mean Corpuscular HGB Conc 31.5 g/dl (32-36); Mean Corpuscular Hemoglobin 29.3 pg (26-34); Mean Corpuscular Volume 93.2 fl (80-100); Mean Platelet Volume 9.9 fl (7.4-10.4); Monocytes Absolute Auto 0.5 K/mm3 (0.1-0.6); Monocytes Percent Auto 8.9 % (2.6-8.5); Neutrophils Absolute Auto 3.6 K/mm3 (1.3-6.7); Neutrophils Percent Auto 67.6 % (45.5-73.1); Platelet Count Result 283 k/mm3 (150-375); Red Blood Count 3.65 M/mm3 (4.2-5.4); Red Cell Distribution Width 15.6 % (11.5-14.5); White Blood Count 5.3 K/mm3 (4.5-10.0)
[2020-06-09 12:22] LABS: Cholesterol 223 mg/dL (0-200); HDL Direct 53 mg/dL; Triglycerides 149 mg/dL (<150)
[2020-06-09 12:30] LABS: CRP < 0.5 mg/dL (<1.0); Iron 49 ug/dL (37-170)
[2020-06-09 12:32] LABS: LDL Cholesterol Direct 123 mg/dL
[2020-06-09 12:34] LABS: Rheumatoid Factor < 8.6 IU/ML (<12)
[2020-06-09 12:40] LABS: Percent Iron Saturation 13 % (20-50)
[2020-06-09 13:16] LABS: Erythrocyte Sedimentation Rate 26 mm/hr (0-20)
== END 2020-06-09 10:49 | disposition home or self-care (01) ==
PROVIDERS: PCP Family Medicine; Referring Provider Specialist; Visit Provider Nurse Practitioner Family
DX: R21 Rash and other nonspecific skin eruption (principal); E78.5 Hyperlipidemia, unspecified; D64.9 Anemia, unspecified; D62 Acute posthemorrhagic anemia
CPT/HCPCS: 36415; 80061; 82728; 83540; 83550; 85025; 85652; 86038; 86140; 86430

== ENCOUNTER 2020-09-05 13:57 | Outpatient (CLI) | payer MEDICARE, OTHER, SELFPAY ==
[2020-09-05 14:25] LABS: Basophils Percent Auto 0.5 % (0.2-1.2); Eosinophils Absolute Auto 0.1 K/mm3 (0-0.3); Eosinophils Percent Auto 2.4 % (0-4.4); Hematocrit 37.2 % (37.0-47.0); Hemoglobin 11.7 g/dL (12.0-15.0); Immature Granulocyte Absolute 0.02 K/mm3 (0.00-0.031); Immature Granulocyte Percent A 0.3 % (0-0.5); Lymphocytes Absolute Auto 1.53 K/mm3 (0.9-3.2); Mean Corpuscular HGB Conc 31.5 g/dl (32-36); Mean Corpuscular Hemoglobin 26.6 pg (26-34); Mean Corpuscular Volume 84.5 fl (80-100); Mean Platelet Volume 9.9 fl (7.4-10.4); Monocytes Absolute Auto 0.6 K/mm3 (0.1-0.6); Monocytes Percent Auto 9.5 % (2.6-8.5); Neutrophils Absolute Auto 3.6 K/mm3 (1.3-6.7); Neutrophils Percent Auto 61.3 % (45.5-73.1); Platelet Count Result 241 k/mm3 (150-375); White Blood Count 5.9 K/mm3 (4.5-10.0)
[2020-09-05 14:35] LABS: Anion Gap 11 mmol/L (8-16); Blood Urea Nitrogen 24 mg/dL (7-17); Calcium 9.6 mg/dL (8.4-10.2); Carbon Dioxide 27 mmol/L (22-30); Chloride 101 mmol/L (98-107); Estimated Glomerular Filt Rate 60; Glucose 138 mg/dL (65-105); Potassium 4.1 mmol/L (3.4-5.0); Sodium 139 mmol/L (137-145)
== END 2020-09-05 13:58 | disposition home or self-care (01) ==
PROVIDERS: PCP Family Medicine; Visit Provider Nurse Practitioner Family
DX: D64.9 Anemia, unspecified (principal); I10 Essential (primary) hypertension
CPT/HCPCS: 36415; 80048; 85025

== ENCOUNTER 2020-09-05 14:03 | Outpatient (CLI) | payer MEDICARE, OTHER, SELFPAY ==
[2020-09-05 14:38] LABS: Alanine Aminotransferase 33 U/L (4-35); Albumin Level 4.5 g/dL (3.5-5.1); Alkaline Phosphatase 84 U/L (38-126); Anion Gap 10 mmol/L (8-16); Aspartate Amino Transferase 35 U/L (14-36); Bilirubin,Total 0.4 mg/dL (0.2-1.3); Blood Urea Nitrogen 24 mg/dL (7-17); Calcium 9.7 mg/dL (8.4-10.2); Carbon Dioxide 27 mmol/L (22-30); Chloride 102 mmol/L (98-107); Estimated Glomerular Filt Rate 60; Glucose 140 mg/dL (65-105); Potassium 4.3 mmol/L (3.4-5.0); Sodium 139 mmol/L (137-145)
== END 2020-09-05 14:04 | disposition home or self-care (01) ==
PROVIDERS: PCP Family Medicine
DX: I48.0 Paroxysmal atrial fibrillation (principal); Z79.899 Other long term (current) drug therapy
CPT/HCPCS: 36415; 80048; 80053; 85025

== ENCOUNTER 2020-12-22 22:29 | Observation (INO) | payer MEDICARE, OTHER, SELFPAY ==
--- NOTE | ~2020-12-22 | XR_ITS ---
EXAMINATION: XR chest 1V portable INDICATION: Shortness of breath TECHNIQUE: Portable AP chest at 2313 hours COMPARISON: 05/13/2020 FINDINGS: There is mild atelectasis of the lung bases. No pleural effusion or pneumothorax is identif ied. Cardiomegaly is noted. A triple lead cardiac pacemaker of the left chest wall ends with leads in expected locations. Median sternotomy wires and mediastinal surgical clips are seen, likely from chelsi or coronary artery bypass grafting. IMPRESSION: 1. Mild atelectasis of the lung bases. Reviewed, dictated and finalized at location A.
[2020-12-22 22:34] VITALS: BP 135/71; PULSE 129; RESP 21; TEMP 36.4; O2SAT 98
--- NOTE | 2020-12-22 22:39 | ECG_ITS ---
Measurements Intervals [place] Rate: 117 P: UT: 0 QRS: -39 QRSD: 165 T: 137 QT: 374 QTc: 523 Interpretive Statements ATRIAL FIBRILLATION WITH RAPID VENTRICULAR RESPONSE LEFT AXIS DEVIATION [QRS AXIS < -30] LEFT BUNDLE BRANCH BLOCK BASELINE ARTIFACT- II, III, AVR, AVL, AVF, V1, V4-V6 ABNORMAL ECG Electronically Signed On 12-23-2020 6:40:46 CDT by Jonah Barber D.O.
[2020-12-22 22:54] LABS: Basophils Absolute Auto 0.1 K/mm3 (0.0-0.1); Basophils Percent Auto 0.6 % (0.2-1.2); Eosinophils Absolute Auto 0.2 K/mm3 (0-0.3); Eosinophils Percent Auto 2.3 % (0-4.4); Hematocrit 35.7 % (37.0-47.0); Hemoglobin 11.8 g/dL (12.0-15.0); Immature Granulocyte Absolute 0.04 K/mm3 (0.00-0.031); Immature Granulocyte Percent A 0.4 % (0-0.5); Lymphocytes Absolute Auto 2.27 K/mm3 (0.9-3.2); Lymphocytes Percent Auto 23.4 % (18.3-44.2); Mean Corpuscular HGB Conc 33.1 g/dl (32-36); Mean Corpuscular Hemoglobin 29.1 pg (26-34); Mean Corpuscular Volume 88.1 fl (80-100); Mean Platelet Volume 10.2 fl (7.4-10.4); Monocytes Absolute Auto 1.3 K/mm3 (0.1-0.6); Monocytes Percent Auto 12.9 % (2.6-8.5); Neutrophils Absolute Auto 5.9 K/mm3 (1.3-6.7); Neutrophils Percent Auto 60.4 % (45.5-73.1); Platelet Count Result 269 k/mm3 (150-375); Red Blood Count 4.05 M/mm3 (4.2-5.4); Red Cell Distribution Width 15.8 % (11.5-14.5); White Blood Count 9.7 K/mm3 (4.5-10.0)
[2020-12-22 23:06] LABS: Partial Thromboplastin Time 28.2 SECONDS (22.3-36.8); Prothrombin Time 12.8 Seconds (11.1-14.7)
[2020-12-22 23:14] LABS: Alanine Aminotransferase 35 U/L (4-35); Albumin Level 4.5 g/dL (3.5-5.1); Alkaline Phosphatase 137 U/L (38-126); Anion Gap 15 mmol/L (8-16); Aspartate Amino Transferase 32 U/L (14-36); Bilirubin,Total 0.4 mg/dL (0.2-1.3); Blood Urea Nitrogen 23 mg/dL (7-17); Calcium 9.4 mg/dL (8.4-10.2); Carbon Dioxide 23 mmol/L (22-30); Chloride 100 mmol/L (98-107); Estimated CRCL calculation 45 ml/min; Estimated Glomerular Filt Rate 60; Glucose 203 mg/dL (65-110); Magnesium 1.6 mg/dL (1.6-2.3); Potassium 3.6 mmol/L (3.4-5.0); Sodium 138 mmol/L (137-145)
[2020-12-22 23:27] VITALS: PULSE 130
[2020-12-22] MEDS: METOPROLOL TARTRATE INJ 5 MG/5 ML VIAL IV PUSH (23:27)
[2020-12-22] MEDS: FUROSEMIDE INJ 40 MG/4 ML VIAL IV PUSH (23:32)
[2020-12-22] MEDS: NITROGLYCERIN SL 0.4 MG TABLET SUBLINGUAL (23:32)
[2020-12-22 23:39] LABS: NT Pro B Type Natriuretic Pept 227 pg/mL (5-100); Troponin I 0.056 ng/mL (0.000-0.034)
--- NOTE | 2020-12-22 23:49 | ED.GENADULT ---
HPI - General Adult General Chief complaint: Chest Pain Stated complaint: chest pain Time Seen by Provider: 12/22/20 22:31 History of Present Illness HPI narrative: Patient 80-year-old female presents the emergency department with chief complaint of shortness of breath and chest discomfort. Patient states the discomfort started approximately 1 hour prior to arrival states she is having some tightness in the chest that radiates up into her neck patient does report she is had some recent weight gain but reports that she is not had any increasing peripheral edema. The patient states that she had some pulmonary function test today and did not feel well after she had the test. The patient states that she had some nausea but is not had any vomiting or diarrhea does report that she is on Eliquis and on antiplatelet therapy patient does have a pacemaker defibrillator and is also had history of A. fib. Related Data Home Medications Medication Instructions Recorded Confirmed evolocumab 420 mg/3.5 mL 420 mg SUBCUT MONTHLY 04/12/20 09/18/20 subcutaneous wearable injector Allergies Allergy/AdvReac Type Severity Reaction Status Date / Time Olwcgra-IMU-SkU Reductase AdvReac Intermediate Muscle Pain Verified 12/22/20 22:45 Inhibitor [Hqmtbbx-Sgt-Yqk Reductase Inhibitor] Review of Systems Review of Systems: A 10 system review of systems was completed on the patient and is negative except for what is stated in the HPI. Nursing and ancillary documentation was reviewed. 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 BMI 29.0-29.9,adult BMI 30.0-30.9,adult Colonoscopy planned Combined systolic and diastolic heart failure Essential (primary) hypertension GERD (gastroesophageal reflux disease) Hx of detention use of blood thinners Hyperlipidemia Occult blood positive stool Paroxysmal atrial fibrillation Surgical History Surgical History History of bilateral knee arthroplasty Family History Family History Father Asthma Lung cancer Mother Hypertension Sibling Lung cancer Social History Social History Smoking packs per day: 0.5 Smoking cigarettes per day: 10.0 Years smoked: 3 Smoking pack-years: 1.50 Tobacco type: cigarettes Alcohol intake: never Substance use: never Substance use type: does not use 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 HEAD: Normocephalic, atraumatic. EYES: PERRLA and EOMI. ENT: Nares clear, no rhinorrhea or epistaxis. Mucous membranes moist. NECK: Supple. CHEST: Clear to auscultation. No respiratory distress. HEART: Regular rate and rhythm. No murmur heard. Normal peripheral pulses. ABDOMEN: Soft, nontender, nondistended, normal active bowel sounds. EXTREMITIES: Normal range of motion. No edema. SKIN: Warm, dry, no rash. NEURO: No focal deficits. Alert and oriented x3. PSYCH: Normal mood and affect. Course Course Emergency Course: EKG is atrial fibrillation with rapid ventricular response with a left bundle branch block Vital Signs Vital signs: Vital Signs Temperature 36.4 C 12/22/20 22:34 Pulse Rate 129 H 12/22/20 22:34 Respiratory Rate 21 H 12/22/20 22:34 Blood Pressure 135/71 12/22/20 22:34 Pulse Oximetry 98 12/22/20 22:34 Temperature 36.4 C 12/22/20 22:34 Pulse Rate 118 H 12/23/20 01:07 Respiratory Rate 26 H 12/23/20 01:07 Blood Pressure 104/70 12/23/20 01:07 Pulse Oximetry 96
[2020-12-23] VITALS (21 sets, daily range): BP systolic 97–142; BP diastolic 47–75; PULSE 60–118; RESP 13–26; TEMP 36.4–36.9; O2SAT 92–100; BMI 31.7
--- NOTE | 2020-12-23 | ECHO_ITS ---
Patient Info Name: Ghazal Golden Age: 80 years : 1940 Gender: Female Ht: 64 in Wt: 184 lbs BSA: 1.97 m2 HR: 66 bpm BP: 119 / 47 mmHg Heart Rhythm: Paced Technical Quality: Fair Exam Date: 12/23/2020 1:27 PM Exam Location: [facility] [facility]am Room: ICU1 Patient Status: Inpatient Admit Date: 12/23/2020 Staff Ordering Physician: Humble Aguilar MD Medical Office Specialist: Katerine Herrera RCS Attending Provider: Piper Tiwari DO Referring Physician: Lauren DE LA GARZA; Exam Type: CA echo doppler color flow Study Info Indications - PPM PAF ELEVATED TROPONIN CAD CM Complete two-dimensional, color flow and Doppler transthoracic echocardiogram is performed. Summary 1. Complete two-dimensional, color flow and Doppler transthoracic echocardiogram is performed. 2. Left ventricular chamber dimension is mildly enlarged. 3. Left ventricular systolic function is normal, estimated at 55-60%. 4. There is moderately increased left ventricular wall thickness. 5. Left ventricular septal wall motion is abnormal with septal motion related to pacing. 6. The left ventricular diastolic function is grade II diastolic dysfunction. 7. The basal inferior wall is akinetic. 8. The apical inferior wall, and mid inferior wall are hypokinetic. 9. Left atrial chamber dimension is moderately enlarged. 10. Right atrial chamber dimension is mildly enlarged. 11. There is mild mitral valve regurgitation. 12. There is mild tricuspid valve regurgitation. 13. Mild pulmonary hypertension, estimated pulmonary arterial systolic pressure is 35 mmHg. Left Ventricle Left ventricular chamber dimension is mildly enlarged. Left ventricular systolic function is normal, estimated at 55-60%. There is moderately increased left ventricular wall thickness. Left ventricular septal wall motion is abnormal with septal motion related to pacing. The left ventricular diastolic function is grade II diastolic dysfunction. The basal inferior wall is akinetic. The apical inferior wall, and mid inferior wall are hypokinetic. All other mcclain appear normal. Right Ventricle Right ventricular chamber dimension is normal. Right ventricular systolic function is normal. Left Atria Left atrial chamber dimension is moderately enlarged. Right Atria Right atrial chamber dimension is mildly enlarged. Atrial Septum Intact interatrial septum visualized by color flow imaging. Aortic Valve The aortic valve is trileaflet. There is mild aortic valve sclerosis. There is no aortic valve stenosis. There is trace aortic valve regurgitation. Pulmonic Valve The pulmonic valve is normal. There is no pulmonic valve stenosis. There is trace pulmonic regurgitation. Mitral Valve The mitral valve has normal leaflets. There is no mitral valve stenosis. There is mild mitral valve regurgitation. Tricuspid Valve The tricuspid valve leaflets are normal. There is no significant tricuspid valve stenosis. There is mild tricuspid valve regurgitation. Mild pulmonary hypertension, estimated pulmonary arterial systolic pressure is 35 mmHg. Pericardium/Pleural The pericardium appears normal. There is no pericardial effusion. Inferior Vena Cava Normal inferior vena cava with >50% collapse upon inspiration consistent with elevated right atrial pressure, 10 mmHg. Aorta The aortic root size at the sinus of Valsalva is normal. Left Ventricular Outflow Tract
[2020-12-23 00:06] LABS: Add Urine Microscopic? YES; Appearance Urine Clear (Clear); Bacteria Urine Trace /hpf; Bilirubin Urine Negative (Negative); Blood Urine Negative (Negative); Color Urine Yellow (Yellow); Glucose Urine UA 2+ mg/dL (Negative); Ketones Urine Negative (Negative); Leukocyte Esterase Ur Trace LEU/UL (Negative); Nitrate Urine Negative (Negative); Protein Urine 1+ mg/dL (Negative); RBC Urine 0-2 /hpf (0-2); Specific Grav Ur 1.009 (1.001-1.035); Urobilinogen Urine Negative mg/dL (<2.0)
--- NOTE | 2020-12-23 01:53 | PC.NURSE ---
pt heart rate 80 at this time. cardizem paused per EDP braydonyer.
[2020-12-23 02:15] LABS: Troponin I 0.075 ng/mL (0.000-0.034)
--- NOTE | 2020-12-23 02:17 | ECG_ITS ---
Measurements Intervals [place] Rate: 60 P: 118 GA: 104 QRS: 268 QRSD: 163 T: 74 QT: 534 QTc: 534 Interpretive Statements ELECTRONIC ATRIAL PACEMAKER ELECTRONIC VENTRICULAR PACEMAKER BASELINE ARTIFACT- I, II, III, AVR, AVL, AVF, V3-V6 NO FURTHER INTERPRETATION IS POSSIBLE ATYPICAL ECG Electronically Signed On 12-23-2020 6:42:30 CDT by Jonah Barber D.O.
--- NOTE | 2020-12-23 03:50 | PM.IMHP ---
H&P: HPI History of Present Illness Date/Time: 12/23/20 03:50 Chief Complaint: Shortness of breath and chest pain Narrative: 80-year-old female with a past medical history of coronary artery disease, paroxysmal atrial fibrillation, systolic and diastolic heart failure, COPD and hypertension who presented to the ER via private vehicle due to chest pain and shortness of breath for 1 hour. The patient reports she had pulmonary function testing earlier in the day had been having trouble breathing since that time. She noticed shortly after her pulmonary function testing that she began having difficulty breathing and some chest pressure. She cannot describe the exact type of chest pain. It was substernal in nature. It was accompanied by some pain in her posterior neck. She reported that when she had her CT many years ago it was associated with pain in her posterior neck. She did have some mild nausea accompanying the symptoms as well as some lightheadedness. She reports that she has chronic dyspnea on exertion but it was a little bit worse today. It was accompanied by some significant tachycardia with her blood pressure cuff at home reading a heart rate in the 130s. She did not think about her symptoms thing associated with AFib as she has not had atrial fibrillation in many years. She is soon that her pacemaker/defibrillator would stop her from having any further episodes of AFib. She follows with Dr. Cha at [facility] for her cardiac care. She had previously been followed by Dr. Lee Ann Galeana until sometime around 2018. She has an appointment with Dr. Dunn early next month for an echocardiogram. She denies any orthopnea, paroxysmal nocturnal dyspnea or lower extremity swelling. She denies any changes in bowel or bladder habits. She has not been having any fevers or chills. She has been taking her cardiac medications as directed. She has not had an episode of atrial fibrillation since 2018 that she can recall. She reports that her glucoses have been stable for the most part. Review of Systems Review of Systems: 12 systems were reviewed with pertinent positives and negatives per HPI. Except as documented in the HPI, all other systems were reviewed and are negative. [facility] Past Medical History Medical History (Updated 12/23/20 @ 07:40 by Piper Tiwari DO) Acute blood loss anemia (05/2020) Due to extremity hematoma Anxiety 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 Basal cell carcinoma Colonoscopy planned Combined systolic and diastolic heart failure Echocardiogram 2017 demonstrated EF of 35-40% with moderate global left ventricular systolic dysfunction and diastolic dysfunction with severe pulmonary hypertension with RVSP of 75 with [id number] tricuspid regurgitation and severe pulmonic regurgitation Diabetes mellitus Diabetic peripheral neuropathy Eczema Essential (primary) hypertension GERD (gastroesophageal reflux disease) 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 Hyperlipidemia Obesity Obstructive sleep apnea Osteopenia Paroxysmal atrial fibrillation Surgical History Surgical History (Updated 12/23/20 @ 07:40 by Piper Tiwari DO) AICD (automatic cardioverter/defibrillator) present History of bilateral knee replacement History of colonoscopy with polypectomy History of heart artery stent Stent placed saphenous vein graft to posterior lateral branch in 2009 and in 2013, she had restenoses the saphenous vein graft, she then had 3 cardiac stents placed May 2017 at [facility] due to complex City of her vasculature Hx of CABG (~2001) Four vessel CABG Status post cataract extraction of both eyes with insertion of intraocular lens Status post open reduction with internal fixation of fracture Left hip intramedullary pin Family History Family History Father Asthma Lung cancer Mother Hypertensi
--- NOTE | 2020-12-23 03:50 | ADMGEN ---
This patient, Ghazal Golden, was admitted to Intensive Care Unit-1 at 0303. Patient/family oriented to hospital policies and general routines including ID bracelet, bed and alarms, visiting hours, pain management, procedures, bathroom and other care routines, personal items, smoking policy, room service/diet, and visiting hours. Information on how to activate the Rapid Response Team has been discussed. Patient/Family are encouraged to report perceived risks to care and to ask questions if they do not understand what they are told or what they should do.
--- NOTE | 2020-12-23 04:01 | ECG_ITS ---
Measurements Intervals Bernice Rate: 74 P: 66 FL: 185 QRS: -75 QRSD: 139 T: 93 QT: 473 QTc: 526 Interpretive Statements ATRIAL SENSE- ELECTRONIC VENTRICULAR PACEMAKER BASELINE ARTIFACT- I, II, III, AVR, AVL, AVF NO FURTHER INTERPRETATION IS POSSIBLE ATYPICAL ECG Electronically Signed On 12-23-2020 8:46:35 CDT by Jonah Barber D.O.
[2020-12-23 07:57] LABS: Troponin I 0.081 ng/mL (0.000-0.034)
[2020-12-23 08:45] LABS: Glucose Point of Care 127 mg/dl (65-105)
--- NOTE | 2020-12-23 10:32 | PM.CNCAR ---
Assessment and Plan Assessment and plan (1) PAF (paroxysmal atrial fibrillation): Code(s): I48.0 - Paroxysmal atrial fibrillation Status: Acute Assessment and Plan: Back in sinus rhythm following conversion shortly after diltiazem administration. Continue amiodarone 200 mg daily and Eliquis. Her potassium is at the lower limits of normal. Will give her 20 mg p.o. potassium chloride x1 in addition to her normal dosing. (2) Combined systolic and diastolic heart failure: Qualifiers: Heart failure chronicity: chronic Qualified Code(s): I50.42 - Chronic combined systolic (congestive) and diastolic (congestive) heart failure Code(s): I50.40 - Unspecified combined systolic (congestive) and diastolic (congestive) heart failure Status: Chronic Assessment and Plan: Compensated. Continue furosemide and potassium supplementation. Continue Entresto and carvedilol also. (3) Elevated troponin: Code(s): R77.8 - Other specified abnormalities of plasma proteins Status: Acute Assessment and Plan: Uncertain if this is type 2 myocardial infarction from demand ischemia from atrial fibrillation with rapid ventricular response or from acute plaque rupture. Most likely from her atrial fibrillation though. Will continue to trend troponins with serial cardiac enzymes until peak. 2D echocardiogram Doppler will be ordered. Will likely perform a Lexiscan myocardial perfusion study for ischemic evaluation prior to discharge rather than proceeding with coronary angiogram. (4) Chest pain: Qualifiers: Chest pain type: unspecified Qualified Code(s): R07.9 - Chest pain, unspecified Code(s): R07.9 - Chest pain, unspecified Status: Acute Assessment and Plan: Resolved. (5) Hypertension associated with diabetes: Code(s): E11.59 - Type 2 diabetes mellitus with other circulatory complications; I15.2 - Hypertension secondary to endocrine disorders Status: Acute Assessment and Plan: At goal (6) Chronic anticoagulation: Code(s): Z79.01 - long-term (current) use of anticoagulants Status: Acute Assessment and Plan: Continue Eliquis (7) Coronary artery disease: Code(s): I25.10 - Atherosclerotic heart disease of [place] coronary artery without angina pectoris Status: Acute Assessment and Plan: Continue clopidogrel, carvedilol, Entresto, ranolazine, Repatha and p.r.n. nitroglycerin. History of Present Illness History of Present Illness Consult date/time: 12/23/20 10:32 Requesting physician: Piper Sanchez DO Consult reason: atrial fibrillation Reason For Visit: chest pain, afib w/rvr, elevated trop Narrative: Date of service 12/23/2020 Requesting provider: Dr. sanchez Reason for consultation: Atrial fibrillation, elevated troponin History: Patient is a former patient of Dr. Galeana who is now seeing Dr. Cha at [facility]. She does have a significant cardiac history including cardiomyopathy, heart failure, coronary disease and history of bypass grafting, multiple stents, ICD implantation, paroxysmal atrial fibrillation, chronic anticoagulation and COPD. She was having a pulmonary function test yesterday and whenever she returned home she shortly thereafter started to have some shortness of breath as well as chest pain. Chest pain radiated into the back of her neck. This felt similar to a previous myocardial infarction. She became very short of breath and at that point decided to come to the emergency room for further workup and evaluation. She was found to be in atrial fibrillation with rapid ventricular response. She had taken 3 sublingual nitroglycerines at home with mild relief but not significant relief of her symptoms. She had been quite stable up until yesterday. She has had no recent chest pain, shortness of breath, syncope, presyncope, paroxysmal nocturnal dyspnea, orthopnea, edema palpitation
[2020-12-23] MEDS: glipiZIDE 5 MG TABLET PO ×2 (11:05→17:02)
[2020-12-23] MEDS: AMIODARONE HCL 200 MG TABLET PO (11:05)
[2020-12-23] MEDS: metFORMIN HCL 500 MG TABLET 1000 MG PO ×2 (11:05→17:01)
[2020-12-23] MEDS: POTASSIUM CHLORIDE 20 MEQ TABLET PO (11:06)
[2020-12-23] MEDS: APIXABAN 5 MG TABLET PO ×2 (11:06→20:16)
[2020-12-23] MEDS: carvediloL 25 MG TABLET PO ×2 (11:06→20:16)
[2020-12-23] MEDS: POTASSIUM CHLORIDE 20 MEQ TABLET.ER PO ×2 (11:06→17:01)
[2020-12-23] MEDS: FUROSEMIDE 40 MG TABLET PO (11:07)
[2020-12-23] MEDS: CLOPIDOGREL BISULFATE 75 MG TABLET PO (11:07)
[2020-12-23] MEDS: MAGNESIUM OXIDE 400 MG TABLET PO (11:07)
[2020-12-23] MEDS: CHOLECALCIFEROL 1,000 UNITS TABLET 2000 UNITS PO ×2 (11:07→17:00)
[2020-12-23] MEDS: FLUTICASONE PROPIONATE 0.05% NA SPR 16 GM BTL (*BKC) 1 SPRAY NASAL (11:07)
[2020-12-23] MEDS: OMEGA 3 POLYUNSAT FATTY ACIDS 1 GM CAP 2 GM PO ×2 (11:08→17:00)
[2020-12-23] MEDS: OPTI-GEN TAB 1 TABLET PO (11:08)
[2020-12-23] MEDS: RANOLAZINE 500 MG TAB.ER.12H PO ×2 (11:08→20:16)
[2020-12-23] MEDS: SACUBITRIL/VALSARTAN 24-26 MG TABLET 2 TAB PO ×2 (11:09→20:16)
[2020-12-23] MEDS: NITROGLYCERIN 0.2 MG/HR PATCH 1 PATCH TRANSDERM (11:10)
[2020-12-23] MEDS: MULTIVITAMINS THERAPEUTIC TAB (*BKC) 1 TABLET PO (11:10)
--- NOTE | 2020-12-23 11:51 | PM.IMPN ---
Progress Note: A&P Assessment and Plan (1) Atrial fibrillation with RVR: Code(s): I48.91 - Unspecified atrial fibrillation Status: Acute Assessment and Plan: Patient has converted now to sinus rhythm Continue amiodarone Follow cardiology recommendations Echocardiogram has been done (2) Elevated troponin: Code(s): R77.8 - Other specified abnormalities of plasma proteins Status: Acute Assessment and Plan: Continue to trend Likely secondary to atrial fibrillation EKG with no changes (3) Hx of longterm use of blood thinners: Code(s): Z92.29 - Personal history of other drug therapy Status: Acute Assessment and Plan: Continue home Eliquis (4) Chest pain: Qualifiers: Chest pain type: unspecified Qualified Code(s): R07.9 - Chest pain, unspecified Code(s): R07.9 - Chest pain, unspecified Status: Acute Assessment and Plan: Likely due to an episode of atrial fibrillation. Troponins not indicative of acute cardiac ischemia. (5) Diabetes mellitus with hyperglycemia: Code(s): E11.65 - Type 2 diabetes mellitus with hyperglycemia Status: Acute Assessment and Plan: Insulin sliding scale Carb consistent diet Subjective Date/time seen: 12/23/20 11:51 I feel fine Review of Systems Review of Systems: No complaints at the time of my visit Constitutional: Constitutional: Denies chills, Denies fatigue, Denies fever(s), Denies malaise and Denies weakness Eyes: Eyes: Denies change in vision ENT: Denies dysphagia, Denies nasal congestion, Denies nasal discharge, Denies nasal obstruction and Denies odynophagia Cardiovascular: Cardiovascular: Denies chest pain, Denies edema, Denies claudication, Denies leg edema, Denies lightheadedness, Denies radiating jaw, neck or arm pain, Denies palpitations, Denies dyspnea and Denies dyspnea on exertion Respiratory: Respiratory: Denies cough and Denies dyspnea Gastrointestinal: Gastrointestinal: Denies abdominal pain, Denies dyspepsia, Denies heartburn, Denies diarrhea and Denies nausea Genitourinary: Genitourinary: Reports no additional female genitourinary complaints Musculoskeletal: Musculoskeletal: Reports no additional musculoskeletal complaints Integumentary/Breasts: Skin/Breast: Reports system reviewed and no additional complaints, except as docu Neurologic: Reports system reviewed and no additional complaints, except as documented Psychiatric: Psychiatric: Reports no additional psychiatric complaints Endocrine: Endocrine: Reports no additional endocrine complaints Hematologic/Lymphatic: Hematologic/Lymphatic: Reports no additional hematologic/lymphatic complaints Allergic/Immunologic: Allergic/Immunologic: Reports no additional allergic/immunologic complaints Exam Narrative: Laying in bed Const: General: comfortable, no acute distress, well developed, alert and awake Nutritional Appearance: average body habitus Orientation/consciousness: patient oriented x3 HENMT: Head: normal to inspection, normocephalic and atraumatic Ears: hearing grossly normal bilaterally Face and sinus: normal facial exam Eyes: General: appearance normal, both eyes and all related structures Pupils: Equal, round and reactive pupils present EOM: EOMs intact bilaterally Neck: Neck: full ROM, no lymphadenopathy and no JVD Thyroid: thyroid normal Lymphatic: no lymphadenopathy noted Resp: Effort & Inspection: normal respiratory effort and able to speak in complete sentences Auscultation: clear to auscultation bilaterally Cardio: Jugular venous distension: no JVD Rate: regular rate Rhythm: regular rhythm Heart sounds: S1 normal heart sound present and S2 normal heart sound present GI: GI Palp: Yes Soft to palpation and Yes No hepatosplenomegaly present : General: Yes deferred Skin: Rashes: no rashes Wounds: no wounds Neuro: General: patient oriented x3 and CN's II-XI intact
[2020-12-23 13:03] LABS: Glucose Point of Care 142 mg/dl (65-105)
[2020-12-23 17:26] LABS: Glucose Point of Care 148 mg/dl (65-105)
[2020-12-23 20:24] LABS: Glucose Point of Care 145 mg/dl (65-105)
--- NOTE | 2020-12-23 22:20 | PC.NURSE ---
This patient, Ghazal Golden, was received from [ Icu-1] on 12/23/20 at 2220. Patient/family oriented to unit policies and routines
--- NOTE | 2020-12-23 22:24 | PC.NURSE ---
This patient, Ghazal Golden, was transferred to [U 205-1 ] on 12/23/20 at 2210. Personal belongings sent with patient. Report given to [ ALICIA Schumacher]. Appropriate documentation sent with patient.
[2020-12-24] VITALS (9 sets, daily range): BP systolic 101–116; BP diastolic 40–49; PULSE 61–70; RESP 16–20; TEMP 36.5–36.6; O2SAT 93–97
[2020-12-24] MEDS: SACUBITRIL/VALSARTAN 24-26 MG TABLET 2 TAB PO (08:37)
[2020-12-24] MEDS: OMEGA 3 POLYUNSAT FATTY ACIDS 1 GM CAP 2 GM PO (08:38)
[2020-12-24] MEDS: metFORMIN HCL 500 MG TABLET 1000 MG PO (08:39)
[2020-12-24] MEDS: RANOLAZINE 500 MG TAB.ER.12H PO (08:39)
[2020-12-24] MEDS: FUROSEMIDE 40 MG TABLET PO (08:39)
[2020-12-24] MEDS: AMIODARONE HCL 200 MG TABLET PO (08:40)
[2020-12-24] MEDS: APIXABAN 5 MG TABLET PO (08:40)
[2020-12-24] MEDS: MULTIVITAMINS THERAPEUTIC TAB (*BKC) 1 TABLET PO (08:40)
[2020-12-24] MEDS: MAGNESIUM OXIDE 400 MG TABLET PO (08:40)
[2020-12-24] MEDS: CLOPIDOGREL BISULFATE 75 MG TABLET PO (08:41)
[2020-12-24 08:42] LABS: Glucose Point of Care 136 mg/dl (65-105)
[2020-12-24] MEDS: carvediloL 25 MG TABLET PO (08:42)
[2020-12-24] MEDS: OPTI-GEN TAB 1 TABLET PO (08:43)
[2020-12-24] MEDS: CHOLECALCIFEROL 1,000 UNITS TABLET 2000 UNITS PO (08:43)
[2020-12-24] MEDS: FLUTICASONE PROPIONATE 0.05% NA SPR 16 GM BTL (*BKC) 1 SPRAY NASAL (08:44)
[2020-12-24] MEDS: POTASSIUM CHLORIDE 20 MEQ TABLET.ER PO (08:44)
[2020-12-24] MEDS: glipiZIDE 5 MG TABLET PO (08:44)
[2020-12-24] MEDS: NITROGLYCERIN 0.2 MG/HR PATCH 1 PATCH TRANSDERM (08:45)
--- NOTE | 2020-12-24 09:54 | PM.PNCARD ---
Progress Note: A&P Assessment and Plan (1) PAF (paroxysmal atrial fibrillation): Code(s): I48.0 - Paroxysmal atrial fibrillation Status: Acute Assessment and Plan: Back in sinus rhythm following conversion shortly after diltiazem administration. Continue amiodarone 200 mg daily and Eliquis. (2) Combined systolic and diastolic heart failure: Qualifiers: Heart failure chronicity: chronic Qualified Code(s): I50.42 - Chronic combined systolic (congestive) and diastolic (congestive) heart failure Code(s): I50.40 - Unspecified combined systolic (congestive) and diastolic (congestive) heart failure Status: Chronic Assessment and Plan: Compensated. Continue furosemide and potassium supplementation. Continue Entresto and carvedilol also. (3) Elevated troponin: Code(s): R77.8 - Other specified abnormalities of plasma proteins Status: Acute Assessment and Plan: Uncertain if this is type 2 myocardial infarction from demand ischemia from atrial fibrillation with rapid ventricular response or from acute plaque rupture. Most likely from her atrial fibrillation though. She feels well. She states that she had a stress test as an outpatient relatively recently. I think that she is feeling well and I a bleed the troponin elevation was secondary to her atrial fibrillation with rapid ventricular response. Recommend repeat ischemic evaluation with a Lexiscan perfusion study but this could be performed as an outpatient. Okay to discharge. No change her regimen. Follow-up with Dr. Cha at [facility] (4) Chest pain: Qualifiers: Chest pain type: unspecified Qualified Code(s): R07.9 - Chest pain, unspecified Code(s): R07.9 - Chest pain, unspecified Status: Acute Assessment and Plan: Resolved. 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 nitroglycerin. Subjective Date/time seen: 12/24/20 09:54 Interval history: 80-year-old with paroxysmal atrial fibrillation, coronary disease Date of service 12/24/2020: She feels very well today. She denies any chest pain or shortness of breath. Anxious to go home. Review of Systems Review of Systems: All systems reviewed & are unremarkable except as noted in HPI and below Constitutional: Constitutional: Denies excessive sweating, Denies fatigue, Denies headache(s) and Denies weakness Eyes: Eyes: Denies blurry vision ENT: Reports Normal hearing present, Denies headache(s) and Denies neck pain Cardiovascular: Cardiovascular: Reports chest pain and Reports dyspnea Respiratory: Respiratory: Reports dyspnea Gastrointestinal: Gastrointestinal: Denies abdominal pain Genitourinary: Genitourinary: Denies hematuria and Denies flank pain Musculoskeletal: Musculoskeletal: Denies back pain and Denies neck pain Integumentary/Breasts: Skin/Breast: Denies dry skin Neurologic: Reports Normal hearing present, Denies behavioral changes, Denies headache(s) and Denies weakness Psychiatric: Psychiatric: Denies anxiety and Denies behavioral changes Endocrine: Endocrine: Denies excessive sweating and Denies fatigue Hematologic/Lymphatic: Hematologic/Lymphatic: Denies easy bleeding Allergic/Immunologic: Allergic/Immunologic: Denies GI upset with certain foods Exam Narrative: Alert oriented. Appear
[2020-12-24 10:04] LABS: Basophils Percent Auto 0.4 % (0.2-1.2); Eosinophils Absolute Auto 0.2 K/mm3 (0-0.3); Eosinophils Percent Auto 2.5 % (0-4.4); Hematocrit 33.2 % (37.0-47.0); Hemoglobin 10.7 g/dL (12.0-15.0); Immature Granulocyte Absolute 0.02 K/mm3 (0.00-0.031); Immature Granulocyte Percent A 0.2 % (0-0.5); Lymphocytes Absolute Auto 1.42 K/mm3 (0.9-3.2); Lymphocytes Percent Auto 17.1 % (18.3-44.2); Mean Corpuscular HGB Conc 32.2 g/dl (32-36); Mean Corpuscular Hemoglobin 28.9 pg (26-34); Mean Corpuscular Volume 89.7 fl (80-100); Mean Platelet Volume 10.2 fl (7.4-10.4); Monocytes Absolute Auto 0.8 K/mm3 (0.1-0.6); Neutrophils Absolute Auto 5.9 K/mm3 (1.3-6.7); Neutrophils Percent Auto 70.8 % (45.5-73.1); Platelet Count Result 205 k/mm3 (150-375); Red Cell Distribution Width 15.9 % (11.5-14.5); White Blood Count 8.3 K/mm3 (4.5-10.0)
--- NOTE | 2020-12-24 10:09 | PM.DS ---
DS: Admitting Diagnosis Discharge Date 12/24/2020 Admitting Diagnosis (1) Atrial fibrillation with RVR: Code(s): I48.91 - Unspecified atrial fibrillation Status: Acute Assessment and Plan: The patient has been taking her amiodarone as directed. In the ER she received a dose of metoprolol with mild improvement in her heart rate. When tachycardia persisted she was switched to Cardizem drip. By the time she arrived to the ICU patient's rate was in the 70s and she was atrially paced to which is her baseline. Cardizem drip was stopped. Will consult Cardiology see if there is any medication adjustments could be made to help with patient's atrial fibrillation. (2) Elevated troponin: Code(s): R77.8 - Other specified abnormalities of plasma proteins Status: Acute Assessment and Plan: Elevated cardiac enzymes with a relatively flat troponin profile. Likely due to troponin leak from episode AFib RVR in a patient with chronic coronary artery disease. Not suggestive of acute ischemic event. The patient did have some chest discomfort but it sounds of the chest discomfort started after she is likely in AFib. (3) Hx of custodial use of blood thinners: Code(s): Z92.29 - Personal history of other drug therapy Status: Acute Assessment and Plan: Continue home Eliquis (4) Chest pain: Qualifiers: Chest pain type: unspecified Qualified Code(s): R07.9 - Chest pain, unspecified Code(s): R07.9 - Chest pain, unspecified Status: Acute Assessment and Plan: Likely due to an episode of atrial fibrillation. Troponins not indicative of acute cardiac ischemia. (5) Diabetes mellitus with hyperglycemia: Code(s): E11.65 - Type 2 diabetes mellitus with hyperglycemia Status: Acute Assessment and Plan: Will continue home metformin and glipizide. Will add moderate sliding scale insulin with Accu-Cheks a.c. 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 Troponins not indicative of acute cardiac ischemia. (5) Diabetes mellitus with hyperglycemia: Code(s): E11.65 - Type 2 diabetes mellitus with hyperglycemia Status: Acute Assessment and Plan: Insulin sliding scale Carb consistent diet DS: Summary Hospital Course Reason for hospitalization: chest pain Hospital Course: Shortness of breath and chest pain Narrative: 80-year-old female with a past medical history of coronary artery disease, paroxysmal atrial fibrillation, systolic and diastolic heart failure, COPD and hypertension who presented to the ER via private vehicle due to chest pain and shortness of breath for 1 hour. The patient reports she had pulmonary function testing earlier in the day had been having trouble breathing since that time. She noticed shortly after her pulmonary function testing that she began having difficulty breathing and some chest pressure. She cannot describe the exact type of chest pain. It was
[2020-12-24 10:21] LABS: Anion Gap 12 mmol/L (8-16); Blood Urea Nitrogen 29 mg/dL (7-17); Calcium 8.9 mg/dL (8.4-10.2); Carbon Dioxide 24 mmol/L (22-30); Chloride 99 mmol/L (98-107); Estimated CRCL calculation 45 ml/min; Estimated Glomerular Filt Rate 60; Glucose 244 mg/dL (65-110); Magnesium 1.5 mg/dL (1.6-2.3); Phosphorus 4.3 mg/dL (2.5-4.5); Potassium 4.5 mmol/L (3.4-5.0); Sodium 135 mmol/L (137-145)
--- NOTE | 2020-12-24 11:31 | PC.NURSE ---
Patient dicharged to home at 11:30. Education was provided on medication and the need to monitor her pulse and blood pressure. Patient had no further questions at this time.
== END 2020-12-24 11:30 | disposition home or self-care (01) ==
LOC: ANHED 12-23 01:43 → ANHICU 12-23 04:03 → ANHIMU 12-24 10:09 → ANHICU 12-26 16:03 → ANHIMU 12-26 16:03
PROVIDERS: Admitting Provider Internal Medicine; Emergency Provider Emergency Medicine; PCP Family Medicine; Visit Provider Internal Medicine
DX: I48.91 Unspecified atrial fibrillation (principal); R77.8 Other specified abnormalities of plasma proteins; E11.65 Type 2 diabetes mellitus with hyperglycemia; R07.9 Chest pain, unspecified; R06.09 Other forms of dyspnea; E78.5 Hyperlipidemia, unspecified; E11.42 Type 2 diabetes mellitus with diabetic polyneuropathy; G47.33 Obstructive sleep apnea (adult) (pediatric); I11.0 Hypertensive heart disease with heart failure; I50.42 Chronic combined systolic (congestive) and diastolic (congestive) heart failure; I25.10 Atherosclerotic heart disease of native coronary artery without angina pectoris; J44.9 Chronic obstructive pulmonary disease, unspecified; Z95.1 Presence of aortocoronary bypass graft; Z95.810 Presence of automatic (implantable) cardiac defibrillator; Z87.891 Personal history of nicotine dependence; Z79.84 Long term (current) use of oral hypoglycemic drugs; Z79.02 Long term (current) use of antithrombotics/antiplatelets
CPT/HCPCS: 36415; 71045; 80048; 80053; 81001; 82948; 83735; 83880; 84100; 84484; 85025; 85610; 85730; 93005; 93306; 96374; 96375; 99285; A9270; G0378; J1940

== ENCOUNTER 2021-02-21 15:06 | Emergency (ER) | payer MEDICARE, OTHER, SELFPAY ==
--- NOTE | ~2021-02-21 | CT_ITS ---
EXAMINATION: CT brain wo con DATE: 02/21/2021 15:44 INDICATION: Posterior head injury post fall presenting with nausea. TECHNIQUE: Computed tomography (CT) of the head was performed without intravenous contrast. Sagittal and coronal reconstructions were performed. The mA was adjusted according to patient size. Iterative reconstruction technique was employed. The dose-length product was 605.33 mGy-cm. COMPARISON: head CT dated 12/29/2017 FINDINGS: Small right parietal scalp hematoma. No fracture. No acute intracranial hemorrhage, acute infarction or abnormal extra axial fluid collection. Unchanged small old lacunar infarcts at the left caudate nu cleus and more caudally at the right basal ganglia. There is mild scattered white matter hypoattenuat ion consistent with chronic small vessel ischemic disease. Symmetric prominence of the sulci consiste nt with mild age-appropriate diffuse cerebral volume loss. Ventricles are normal and symmetric. No ma ss/mass effect. Changes of bilateral intraocular lens replacement. The orbits and mastoid air cells a re normal. Moderate mucoperiosteal thickening in the left maxillary and bilateral ethmoid sinuses. In tracranial calcified cerebral atherosclerosis is noted. IMPRESSION: 1. Small right parietal scalp hematoma. No fracture or acute intracranial process. 2. Small old lacunar infarcts in the bilateral basal ganglia. 3. Age-related changes including mild diffuse volume loss and mild scattered white matter hypoattenua tion consistent with chronic small vessel ischemic disease. Reviewed, dictated and finalized at [facility]. T LIGHTING SPECIALIST IMPRESSION: 1. Small right parietal scalp hematoma. No fracture or acute intracranial proce ss. 2. Small old lacunar infarcts in the bilateral basal ganglia. 3. Age-related changes including mild diffuse volume loss and mild scattered wh ite matter hypoattenuation consistent with chronic small vessel ischemic diseas e.
[2021-02-21 15:19] VITALS: BP 174/90; PULSE 75; RESP 18; TEMP 36.7; O2SAT 99
--- NOTE | 2021-02-21 15:37 | ED.GENADULT ---
HPI - General Adult General Chief complaint: Fall <Sandra Marquez PA-C - Last Filed: 02/21/21 16:57> Stated complaint: fall <Sandra Marquez PA-C - Last Filed: 02/21/21 16:57> Time Seen by Provider: 02/21/21 15:31 <Sandra Marquez PA-C - Last Filed: 02/21/21 16:57> Source: patient <Sandar Marquez PA-C - Last Filed: 02/21/21 16:57> Mode of arrival: ambulatory <Sandra Marquez PA-C - Last Filed: 02/21/21 16:57> Limitations: no limitations <CARRILLO Guevara Last Filed: 02/21/21 16:57> History of Present Illness HPI narrative: Patient is here for evaluation of head injury after she stumbled and fell hit her head on the sidewalk. She denies any loss of consciousness and she was able to get herself up. She now has a headache that she states is traveling down the back of her head. She is a little bit dizzy and has some mild nausea. She denies any vision changes, she has not vomited. She is on both Eliquis and Plavix due to her extensive cardiac history. Accident happened between 1 and 2 hours ago <Sandra Marquez PA-C - Last Filed: 02/21/21 16:57> Onset (ago): hour(s) <Sandra Marquez PA-C - Last Filed: 02/21/21 16:57> Location: head <CARRILLO Guevara Last Filed: 02/21/21 16:57> Severity scale (1-10): 6 <CARRILLO Guevara Last Filed: 02/21/21 16:57> Exacerbating factors: none <CARRILLO Guevara Last Filed: 02/21/21 16:57> Associated symptoms: denies other symptoms <CARRILLO Guevara Last Filed: 02/21/21 16:57> Treatments prior to arrival: none <Sandra Marquez PA-C - Last Filed: 02/21/21 16:57> Related Data Home medications: Home Medications Medication Instructions Recorded Confirmed evolocumab 420 mg/3.5 mL 420 mg SUBCUT MONTHLY 04/12/20 02/01/21 subcutaneous wearable injector PreserVision Lutein 1 cap PO DAILY 12/23/20 02/01/21 cholecalciferol (vitamin D3) 50 mcg PO BID 12/23/20 02/01/21 nitroglycerin 0.2 mg TRANSDERMAL DAILY 12/23/20 02/01/21 nitroglycerin 0.4 mg SUBLINGUAL Q5M PRN 12/23/20 02/01/21 omega-3 acid ethyl esters 2 cap PO BID 12/23/20 02/01/21 potassium chloride 20 meq PO BID 12/23/20 02/01/21 sacubitril-valsartan 2 tablet PO BID 12/23/20 02/01/21 furosemide 40 mg tablet 80 mg PO QAM tablet 01/03/21 02/01/21 <Sandra Marquez PA-C - Last Filed: 02/21/21 16:57> Allergies/adverse reactions: Allergies Allergy/AdvReac Type Severity Reaction Status Date / Time Raeevpx-VAN-BtU Reductase AdvReac Intermediate Muscle Pain Verified 01/18/21 13:08 Inhibitor [Fyotfnt-Foa-Csd Reductase Inhibitor] <Sandra Marquez PA-C - Last Filed: 02/21/21 16:57> Review of Systems Review of Systems: All systems reviewed & are unremarkable except as noted in HPI and below <Sandra Marquez PA-C - Last Filed: 02/21/21 16:57> [facility] Past Medical History Medical History: Medical History Acute blood loss anemia (05/2020) Due to extremity hematoma Anxiety 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 Basal cell carcinoma BMI 31.0-31.9,adult Colonoscopy planned Combined systolic and diastolic heart failure Echocardiogram 2017 demonstrated EF of 35-40% with moderate global left ventricular systolic dysfunction and diastolic dysfunction with severe pulmonary hypertension with RVSP of 75 with rapk-af-igidvzjn tricuspid regurgitation and severe pulmonic regurgitation Coronary artery disease Diabetes mellitus Diabetic peripheral neuropathy Eczema Essential (primary) hypertension GERD (gastroesophageal reflux disease) 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
[2021-02-21] MEDS: ONDANSETRON HCL ODT 4 MG TABLET PO (17:00)
[2021-02-21] MEDS: ACETAMINOPHEN 500 MG TABLET 1000 MG PO (17:00)
== END 2021-02-21 17:15 ==
LOC: ANHED 16:37
PROVIDERS: Emergency Provider General Practice; PCP Family Medicine
DX: S06.0X0A Concussion without loss of consciousness, initial encounter (principal); I25.810 Atherosclerosis of coronary artery bypass graft(s) without angina pectoris; I50.40 Unspecified combined systolic (congestive) and diastolic (congestive) heart failure; I11.0 Hypertensive heart disease with heart failure; E11.42 Type 2 diabetes mellitus with diabetic polyneuropathy; I48.0 Paroxysmal atrial fibrillation; G47.33 Obstructive sleep apnea (adult) (pediatric); K21.9 Gastro-esophageal reflux disease without esophagitis; E78.5 Hyperlipidemia, unspecified; E66.9 Obesity, unspecified; Z68.30 Body mass index [BMI] 30.0-30.9, adult; M85.80 Other specified disorders of bone density and structure, unspecified site; Z79.01 Long term (current) use of anticoagulants; Z79.02 Long term (current) use of antithrombotics/antiplatelets; Z95.810 Presence of automatic (implantable) cardiac defibrillator; Z96.653 Presence of artificial knee joint, bilateral; Z95.5 Presence of coronary angioplasty implant and graft; Z95.1 Presence of aortocoronary bypass graft; Z98.42 Cataract extraction status, left eye; Z98.41 Cataract extraction status, right eye; Z87.891 Personal history of nicotine dependence; Z79.84 Long term (current) use of oral hypoglycemic drugs; W01.0XXA Fall on same level from slipping, tripping and stumbling without subsequent striking against object, initial encounter
CPT/HCPCS: 70450; 99284; A9270

== ENCOUNTER 2021-04-11 15:27 | Outpatient (CLI) | payer MEDICARE, OTHER, SELFPAY ==
--- NOTE | ~2021-04-11 | XR_ITS ---
EXAMINATION: XR chest 2V DATE: 04/11/2021 15:45 INDICATION: Cough, unspecified. Shortness of breath. TECHNIQUE: Frontal and lateral views of the chest were obtained. COMPARISON: Chest single view 12/22/2020, chest CT 08/30/2016 FINDINGS: There are mild airspace opacities in the mid and lower lung zones. No pleural effusion or p neumothorax. Cardiomegaly is noted. Median sternotomy wires and mediastinal surgical clips are seen, likely from prior coronary artery bypass grafting. There is a left chest pacer/defibrillator with casper ds in right atrium, right ventricle, and coronary sinus. There is mild chronic anterior wedging of mu ltiple vertebral bodies. IMPRESSION: 1. Mild airspace opacities in the mid and lower lung zones, consistent with atelectasis or less likel y pneumonia. 2. Cardiomegaly. Reviewed, dictated and finalized at [facility]. GENCY MANAGEMENT CONSULTANT IMPRESSION: 1. Mild airspace opacities in the mid and lower lung zones, consistent with ate lectasis or less likely pneumonia. 2. Cardiomegaly.
== END 2021-04-11 15:28 | disposition home or self-care (01) ==
LOC: ANHIMG 15:30
PROVIDERS: PCP Family Medicine; Visit Provider Nurse Practitioner Family
DX: R05.9 Cough, unspecified (principal); R06.00 Dyspnea, unspecified; I50.9 Heart failure, unspecified; R91.8 Other nonspecific abnormal finding of lung field; I51.7 Cardiomegaly
CPT/HCPCS: 71046

== ENCOUNTER 2022-01-01 12:06 | Outpatient (CLI) | payer MEDICARE, OTHER, SELFPAY ==
[2022-01-01 12:31] LABS: Hematocrit 35.5 % (37.0-47.0); Hemoglobin 11.4 g/dL (12.0-15.0); Mean Corpuscular HGB Conc 32.1 g/dl (32-36); Mean Corpuscular Hemoglobin 27.7 pg (26-34); Mean Corpuscular Volume 86.2 fl (80-100); Mean Platelet Volume 10.4 fl (7.4-10.4); Platelet Count Result 207 k/mm3 (150-375); Red Blood Count 4.12 M/mm3 (4.2-5.4); White Blood Count 6.4 K/mm3 (4.5-10.0)
[2022-01-01 12:46] LABS: Alanine Aminotransferase 47 U/L (6-35); Albumin Level 4.6 g/dL (3.5-5.1); Alkaline Phosphatase 105 U/L (38-126); Anion Gap 15 mmol/L (8-16); Aspartate Amino Transferase 38 U/L (14-36); Bilirubin,Total 0.5 mg/dL (0.2-1.3); Blood Urea Nitrogen 20 mg/dL (7-17); Calcium 9.1 mg/dL (8.4-10.2); Carbon Dioxide 31 mmol/L (22-30); Chloride 90 mmol/L (98-107); Cholesterol 230 mg/dL (0-200); Estimated Glomerular Filt Rate 60; Glucose 239 mg/dL (65-110); HDL Direct 54 mg/dL; Potassium 3.2 mmol/L (3.4-5.0); Sodium 136 mmol/L (137-145); Triglycerides 139 mg/dL (<150)
[2022-01-01 12:58] LABS: LDL Cholesterol Direct 130 mg/dL
[2022-01-01 13:13] LABS: Hemoglobin A1C 9.1 % (<5.7)
[2022-01-01 13:17] LABS: Thyroid Stimulating Hormone 0.894 uIU/mL (0.465-4.680)
== END 2022-01-01 12:07 | disposition home or self-care (01) ==
PROVIDERS: PCP Family Medicine; Visit Provider Nurse Practitioner Family
DX: K21.9 Gastro-esophageal reflux disease without esophagitis (principal); I15.2 Hypertension secondary to endocrine disorders; E11.59 Type 2 diabetes mellitus with other circulatory complications; I50.42 Chronic combined systolic (congestive) and diastolic (congestive) heart failure; I25.5 Ischemic cardiomyopathy
CPT/HCPCS: 36415; 80053; 80061; 83036; 84443; 85027

== ENCOUNTER 2022-04-01 12:42 | Outpatient (CLI) | payer MEDICARE, OTHER, SELFPAY ==
--- NOTE | ~2022-04-01 | MMUS_ITS ---
EXAMINATION: MM diagnostic juan BI w symone, US breast RT limited HISTORY: Right breast pain. TECHNIQUE: Additional 3-D tomosynthesis images of the breasts were performed and synthetic 2-D images were generated. CAD analysis was submitted and interpreted. High resolution Limited right breast ult rasound was performed. COMPARISON: Mammogram dated 11/13/2011 BREAST PARENCHYMAL COMPOSITION: Breast composed of scattered areas of fibroglandular density FINDINGS: MAMMOGRAPHIC FINDINGS: The left breast is stable. No new masses, calcifications or architectural distortion to suggest malig brendan. There is a new spiculated mass in the lower central aspect of the right breast posteriorly, pa rtially visualized. ULTRASOUND: Limited right breast ultrasound: At 5:00, 3 cm from the nipple, there is an irregular shaped hypoechoic mass measuring 1.3 x 1 x 1.2 c m with irregular margins and posterior shadowing. No significant internal vascularity. At 7:00, 3 cm from the nipple is an irregular shaped hypoechoic mass measuring 9 x 8 x 1.1 cm with some angular mar gins. No significant posterior features or internal vascularity. IMPRESSION: 1. Separate abnormal masses of the right breast at 7:00 and 5:00, 3 cm from the nipple. 2. Ultrasound-guided right breast biopsies recommended. BI-RADS category 5, highly suggestive of malignancy. Reviewed, dictated and finalized at [facility]. NOMETER ASSEMBLER IMPRESSION: 1. Separate abnormal masses of the right breast at 7:00 and 5:00, 3 cm from the nipple. 2. Ultrasound-guided right breast biopsies recommended. BI-RADS category 5, highly suggestive of malignancy.
== END 2022-04-01 12:43 | disposition home or self-care (01) ==
PROVIDERS: PCP Family Medicine; Visit Provider Physician Assistant Medical
DX: N64.4 Mastodynia (principal); N63.10 Unspecified lump in the right breast, unspecified quadrant
CPT/HCPCS: 76642; 77062; 77066; G0279

== ENCOUNTER 2022-04-12 10:08 | Outpatient (CLI) | payer MEDICARE, OTHER, SELFPAY ==
--- NOTE | ~2022-04-12 | US_ITS ---
US breast RT limited DATE: 04/12/2022 11:35 INDICATION: The patient presented for biopsy of right breast 5:00 and 7:00 irregular solid masses. TECHNIQUE: Real-time imaging was performed, confirming the approximately 11 mm irregular solid mass a t 5:00 position and irregular approximately 12 mm mass at 7:00 position. The patient indicated that she had not discontinued her Plavix medication. I indicated that it would be best to reschedule the procedure with the patient having discontinued the Plavix therapy prior to the biopsy in order to avoid possible complication of large hematoma. IMPRESSION: Biopsy of right breast 5:00 and 7:00 lesions is to be rescheduled to allow for discontinu ation of Plavix prior to the procedure in order to minimize risk of significant postbiopsy hematoma. Reviewed, dictated and finalized at [facility]. Reviewed, dictated and finalized at [facility]. AL DEPARTMENT SPECIALIST IMPRESSION: Biopsy of right breast 5:00 and 7:00 lesions is to be rescheduled t o allow for discontinuation of Plavix prior to the procedure in order to minimi ze risk of significant postbiopsy hematoma.
== END 2022-04-12 10:09 | disposition home or self-care (01) ==
PROVIDERS: PCP Family Medicine; Visit Provider Physician Assistant Medical
DX: R92.8 Other abnormal and inconclusive findings on diagnostic imaging of breast (principal)
CPT/HCPCS: 76642